=== PATIENT | female | born 1965 | race Caucasian/White ===

== ENCOUNTER 2025-02-07 13:35 | Outpatient (AMB) | payer BC, SELFPAY ==
--- OUTSIDE RECORDS SUMMARY | 2025-02-07 13:41 | XMS_ITS | Encounter Summary ---
Author Organization [facility] Address [address] [place] [address] Care Team Providers Care Mig Welder Name Role Phone Anny Cullen CAT AND DOG BATHER Primary Care Provider [phone] Encounter Details Date Type Department Care Team (Late st Contact Info) Description 01/29/2024 Orders Only [facility] [address] [place] [address] Anny Cullen, CAT AND DOG BATHER [id number] [place] [address] Hyperlipidemia, unspecified hyperlipidemia type (Primary Dx); Hyperglycemia Social History Tobacco Use Types Packs/Day Years Used Date Smoking Tobacco: Unknown Comments:: Comments No Sex and Gender Information Value Date Recorded Sex Assigned at Female 08/08/2023 7:30 AM EST Legal Sex Female 5:23 AM EDT Gender Identity Female 10/05/2024 2:07 PM EDT Sexual Orientation Other 10/05/2024 2: 07 PM EDT documented as of this encounter Plan of Treatment Upcoming Encounters Date Type Department Care Team (Late st Contact Info) Description 08/19/2025 7:40 AM EDT Appointment [facility] [address] [place] [address] documented as of this encounter Results * Due to [place] state law, this organization might not be sharing negative HIV tests. * Hemoglobin A1c (08/01/2024 7:42 AM EST) Hemoglobin A1c 5.5 4.0 - 5.7 % 08/01/2024 8:18 AM EST [facility] Estimated Average Glucose 111 mg/dL 08/01/2024 8:18 AM EST [facility] Blood Structure of peripheral vein / Unknown Venipuncture / Unknown 08/01/2024 7:42 AM EST 08/01/2024 7:51 AM EST Anny Cullen CAT AND DOG BATHER LAB BLOOD ORDERABLES Final Resu lt [facility] [address] [facility] [address] [place] [address], [place] [phone] * (ABNORMAL) Comprehensive Metabolic Panel (08/01/2024 7:42 AM EST) NA 144 136 - 145 mmol/L 08/01/2024 8:19 AM EST [facility] K 4.6 3.5 - 5.1 mmol/L 08/01/2024 8:19 AM EST [facility] Cl 105 98 - 109 mmol/L 08/01/2024 8:19 AM EST [facility] CO2 27 22 - 32 mmol/L 08/01/2024 8:19 AM EST [facility] Anion Gap 17 >=0 08/01/2024 8:19 AM EST [facility] Glucose 101(H) 60 - 99 mg/dL 08/01/2024 8:19 AM EST [facility] Creatinine 0.87 0.50 - 1.12 mg/dL 08/01/2024 8:19 AM EST [facility] Calcium 9.6 8.4 - 10.4 mg/dL 08/01/2024 8:19 AM EST [facility] Total Protein 7.3 6.6 - 8.7 g/dL 08/01/2024 8:19 AM EST [facility] Albumin 4.4 3.5 - 5.0 g/dL 08/01/2024 8:19 AM EST [facility] Bilirubin, Total 0.4 0.2 - 1.2 mg/dL 08/01/2024 8:19 AM EST [facility] Alkaline Phosphatase 60 40 - 129 U/L 08/01/2024 8:19 AM EST [facility] AST 25 0 - 33 U/L 08/01/2024 8:19 AM EST [facility] ALT 19 <=33 U/L 08/01/2024 8:19 AM EST [facility] BUN 13 8 - 23 mg/dL 08/01/2024 8:19 AM EST [facility] eGFR 76 >=60 mL/min/1. 73m2 08/01/2024 8:19 AM EST [facility] Comment:The estimated glomer ular filtration rate (eGFR) is calculated using a new formula developed by the NKF-ASN task force to eliminate race-based correction factors. The new formula uses serum/plasma creatinine, age, and gender to determine eGFR. A value below 60mls/min might indicate kidney disease and will be flagged. For additional information, see Wiggins et al, Am J Kidney Dis. 2021;79(2):268- 288, A Unifying Approach for GFR estimation: Recommendations of the NKF-ASN Task Force on Reassessing the Inclusion of Race in Diagnosing Kidney Disease . Globulin, Total 2.9 2.1 - 4.2 g/dL 08/01/2024 8:19 AM EST [facility] A/G Ratio 1.5 1.5 - 3.0 08/01/2024 8:19 AM EST [facility] Blood Structure of peripheral vein / Unknown Venipuncture / Unknown 08/01/2024 7:42 AM EST 08/01/2024 7:51 AM EST us Anny Cullen NP LAB BLOOD ORDERABLES Final Resu lt [facility] [address] [facility] [address] [place] [address], * Lipid panel (08/01/2024 7:42 AM EST) Cholesterol 216 mg/dL 08/01/2024 8:19 AM EST [facility] Comment: DESIRABLE: <200 mg/dL BORDERLINE HIGH: 200-239 mg/dL HIGH: >239 mg/dL Triglycerides 172 mg/dL 08/01/2024 8:19 AM EST [facility] Comment: NORMAL: <150 mg/dL BORDERLINE HIGH: 150-199 mg/dL HIGH: 200-499 mg/dL VERY HIGH >499 mg/dL Cholesterol, HDL 78 mg/dL 08/01/19 8:19 AM EST [facility] Comment: DESIRABLE: >60 mg/dL BORDERLINE: 40-59 mg/dL UNDESIRABLE: <40 mg/dL LDL Cholesterol 104 mg/dL 8:19 AM EST [facility] Comment: OPTIMAL: <100 mg/dL NEAR OPTIMAL: <130 mg/dL BORDERLINE HIGH: 130-159 mg/dL HIGH: 160-189 mg/dL VERY HIGH: >189 mg/dL VLDL 34.4 mg/dL 08/01/2024 8:19 AM EST [facility] Cholesterol/HDL Ratio 2.8 08/01/2024 8:19 AM EST [facility] Blood Structure of peripheral vein / Unknown Venipuncture / Unknown 08/01/2024 7:42 AM EST 08/01/2024 7:51 AM EST Anny Cullen CAT AND DOG BATHER LAB BLOOD ORDERABLES Final Resu lt [facility] [address] [place] [id number], documented in this encounter Visit Diagnoses Diagnosis Hyperlipidemia, unspecified hyperlipidemia type- Primary Hyperglycemia Other abnormal glucose documented in this encounter Additional Health Concerns Infection Onset Date Last Indicated Resolved Time R/O Respiratory Virus Infection 01/16/2025 01/16/2025 1:07 PM EDT R/O Influenza 01/16/2025 01/16/2025 01/16/2025 1:0 7 PM EDT COVID-19 - Suspected infection 01/16/2025 01/16/2025 01/16/2025 1:07 PM EDT documented as of this encounter Care Teams Mig Welder Relationship Specialty Start Date End Date Anny Cullen, CAT AND DOG BATHER [address] [place], [place] [address] [place] [address] PCP - General Family Medicine 08/01/24 documented as of this encounter
--- OUTSIDE RECORDS SUMMARY | 2025-02-07 13:41 | XMS_ITS | Encounter Summary ---
Author Organization [facility] Address [address] [place] [address] Care Team Providers Care Supervisor Car Installations Name Role Phone Anny Cullen ARCHITECTURAL INSPECTOR Primary Care Provider Encounter Details Date Type Department Care Team (Late st Contact Info) Description 12/08/2024 Results Follow-Up [address] Physiatry Department [address] [place] [address] [address] [place] [address] Farhan Estrada MD [address] [place] [id number] Social History Tobacco Use Types Packs/Day Years Used Date Smoking Tobacco: Never Smokeless Tobacco: Never Comments:: Alcohol Use Standard Drinks/Week Comments Yes 0 (1 standard drink = 0.6 oz pur e alcohol) Once a week Comments No Sex and Gender Information Value Date Recorded Sex Assigned at Female 08/08/2023 7:30 AM EST Legal Sex Female 5:23 AM EDT Gender Identity Female 10/05/2024 2:07 PM EDT Sexual Orientation Other 10/05/2024 2: 07 PM EDT documented as of this encounter Plan of Treatment Upcoming Encounters Date Type Department Care Team (Late st Contact Info) Description 08/19/2025 7:40 AM EDT Appointment [address] [address] documented as of this encounter Visit Diagnoses Not on filedocumented in this encounter Additional Health Concerns Infection Onset Date Last Indicated Resolved Time R/O Respiratory Virus Infection 01/16/2025 01/16/2025 1:07 PM EDT R/O Influenza 01/16/2025 01/16/2025 01/16/2025 1:0 7 PM EDT COVID-19 - Suspected infection 01/16/2025 01/16/2025 01/16/2025 1:07 PM EDT documented as of this encounter Care Teams Supervisor Car Installations Relationship Specialty Start Date End Date Anny Cullen NP [address] [place] [id number] PCP - General Family Medicine 08/01/24 documented as of this encounter
--- OUTSIDE RECORDS SUMMARY | 2025-02-07 13:41 | XMS_ITS | Encounter Summary ---
Author Organization [facility] Address [address] [facility] [place] [address] Care Team Providers Care Import Export Agent Name Role Phone Unavailable Primary Care Provider Unavailabl e Encounter Details Date Type Department Care Team (Late st Contact Info) Description 01/16/2025 Telephone [facility] [place] [address] Judy Metzger LPN [address] [place] [address] Social History Tobacco Use Types Packs/Day Years Used Date Smoking Tobacco: Never Assessed Comments Unknown Sex and Gender Information Value Date Recorded Sex Assigned at Not on file Legal Sex Female 11:03 AM EST Gender Identity Not on file Sexual Orientation Not on file documented as of this encounter Functional Status * Is the person deaf or does he/she have serious difficulty hearing? Answer Date of Assessment Author * Is this person blind or does he/she have serious difficulty seeing even when wearing glasses? Answer Date of Assessment Author * Does this person have serious difficulty walking or climbing stairs? Answer Date of Assessment Author * Does this person have difficulty dressing or bathing? Answer Date of Assessment Author * Because of a physical, mental, or emotional condition, does this person have difficulty doing errands alone such as visiting a doctor's office or shopping? Answer Date of Assessment Author documented as of this encounter Mental Status * Because of a physical, mental, or emotional condition, does this person have serious difficulty concentrating, remembering, or making decisions? Answer Entry Date Author documented in this encounter Plan of Treatment Not on file documented as of this encounter Visit Diagnoses Not on filedocumented in this encounter
--- OUTSIDE RECORDS SUMMARY | 2025-02-07 13:41 | XMS_ITS | Clinical Summary ---
Author Organization [facility] Address [address] [place] [address] Care Team Providers Care Manager Of Investigations Name Role Phone Anny Cullen APPLICATION DBA Primary Care Provider Allergies Active Allergy Reactions Criticality Noted Date Comments Azithromycin Cough 09/02/2024 Hydrochlorothiazide Abdominal Pain 09/02/2024 hydrochlorothiazide Lisinopril Cough 09/02/2024 Medications ALPRAZolam (XANAX) 0.25 mg tablet Take 0.25 mg by mouth 2 times a day as needed for anxiety. Active atorvastatin (LIPITOR) 10 mg tablet Take 10 mg by mouth once a day. Active buPROPion XL (WELLBUTRIN XL) 150 mg tablet Take 1 tablet by mouth once a day. 10/16/2023 Active metoprolol succinate XL (TOPROL-XL) 200 mg 24 hr tablet Take 200 mg by mouth once a day. Active sertraline (ZOLOFT) 100 mg tablet Take 1.5 tablets by mouth once a day. 12/25/2023 Active naproxen (NAPROSYN) 500 mg tablet TAKE 1 TABLET BY MOUTH TWICE A DAY 60 tablet 09/30/2024 Active tiZANidine (ZANAFLEX) 4 mg tablet Take 1 tablet (4 mg total) by mouth 3 times a day as needed for muscle spasms. 60 tablet 2 11/05/2024 Active gabapentin (NEURONTIN) 300 mg capsule Take 2 capsules (600 mg total) by mouth 3 times a day. 180 capsule 2 01/07/2025 Active amitriptyline (ELAVIL) 25 mg tablet Take 1 tablet (25 mg total) by mouth nightly. 30 tablet 1 01/23/2025 03/24/20 25 Active Active Problems Problem Noted Date Diagnosed Date Lower back pain 04/12/2012 Hypertension 04/12/2012 Encounters Date Type Department Care Team Description 01/23/2025 10:15 AM EDT Office Visit [facility] [address] [place] [address] Ashanti Peterson MD Neck pain (Primary Dx) 01/07/2025 8:30 AM EDT Follow-Up [address] [address] Farhan Estrada MD Neck pain (Primary Dx); Cervical radiculopathy; Facet arthropathy, cervical 12/20/2024 myChart Message [address] [address] Farhan Estrada MD My procedure yesterday 12/19/2024 9:00 AM EDT Procedure visit [facility] Pain Management Department [address] [place] [phone] Cervical radiculopathy (Primary Dx) 12/19/2024 7:20 AM EDT Ancillary Procedure [facility] Pain Management Department [address] [place] [phone] Neck pain 12/18/2024 8:30 AM EDT Follow-Up [address] [address] Farhan Estrada MD Neck pain (Primary Dx); Cervical radiculopathy 12/18/[address] [address] Aga Licona LPN pre-procedure guidelines. 12/09/[address] [place] [address] Farhan Estrada MD 12/08/2024 Results Follow-Up [facility] 100 [facility] Physiatry Department 100 [facility] 4th [facility] [place] [address] Farhan Estrada MD 12/06/2024 6:32 AM EDT - 12/06/2024 11:59 PM EDT Hospital Encounter [place] [facility] 100 [facility] [place] [address] Cervicalgia Discharge Disposition: Home or Self Care () 12/06/2024 Orders Only [facility] 100 [facility] [place] [address] Farhan Estrada MD Cervicalgia from Last 3 Months Social History Tobacco Use Types Packs/Day Years Used Date Smoking Tobacco: Never Smokeless Tobacco: Never Tobacco Cessation:Counseling Given: Not Answered Comments:: Alcohol Use Standard Drinks/Week Comments Yes 0 (1 standard drink = 0.6 oz pur e alcohol) Once a week Comments No Sex and Gender Information Value Date Recorded Sex Assigned at Female 08/08/2023 7:30 AM EST Legal Sex Female 5:23 AM EDT Gender Identity Female 10/05/2024 2:07 PM EDT Sexual Orientation Other 10/05/2024 2: 07 PM EDT Last Filed Vital Signs Vital Sign Reading Time Taken Comments Blood Pressure 126/70 01/07/2025 8:30 AM EDT Pulse 75 01/07/2025 8:30 AM EDT Temperature 35.8 C (96.4 F) 01/07/2025 8:30 AM EDT Respiratory Rate 16 01/07/2025 8:30 AM EDT Oxygen Saturation 97% 01/07/2025 8:30 AM EDT Inhaled Oxygen Concentration - - Weight 67.1 kg (148 lb) 01/07/2025 8:30 AM EDT Height 152.4 cm (5') 01/07/2025 8:30 AM EDT Body Mass Index 28.9 01/07/2025 8:30 AM EDT Plan of Treatment Upcoming Encounters Date Type Department Care Team (Late st Contact Info) Description 08/19/2025 7:40 AM EDT Appointment [facility] [address] [place] [address] Health Maintenance Due Date Last Done Comments Cervical Cancer Screening 1965 Cologuard 1965 FOBT / Fit Test 1965 HIV Screening 1965 HPV and Pap Smear 1965 Hepatitis C Screening 1965 Pap Smear 1965 Sigmoidoscopy 1965 Pneumococcal Vaccine: 50+ Years (1 of 1 - PCV) 11/06/2013 DTaP,Tdap,and Td Vaccines (2 - Td or Tdap) 10/04/2022 10/04/2012 COVID-19 Vaccine ( - season) 2024 05/26/2022, 05/31/2021, 09/09/2020, Additional history exists Alcohol/Substance Use Screening 06/12/2024 Depression Screening and Follow-Up 06/12/2024 Social Drivers of Health Annual Screening 06/12/2024 Influenza Vaccine (#1) 2025 , 03/16/2021, 02/22/2020, Additional history exists Basic Metabolic Panel 08/01/2025 08/01/2024 , 01/17/2024, 10/12/2022, Additional history exists Mammogram 08/13/2026 08/13/2024, 03/0 06/2023, 08/08/2023, Additional history exists Diabetes Screening 08/01/2027 08/01/2024, 0 08/01/2024, 01/17/2024, Additional history exists Colon Cancer Screening 10/07/2034 Colonoscopy 10/07/2034 10/07/2024, 04/2 01/2025, 12/16/2014 RSV Vaccine (60+ years old and patients) (1 - 1-dose 75+ series) 11/06/2038 Zoster Vaccines Completed 03/21/2022, 01/13/2022 Hepatitis B Vaccines Aged Out No long er eligible based on patient's age to complete this topic Procedures * Due to [place] state law, this organization might not be sharing negative HIV tests. Procedure Name Priority Date/Time Associated Diagnosis Comments MVL QS - COVID-19, FLU A/B & RSV RNA PCR, SYMPTOMATIC Routine 01/16/2025 12:21 PM EDT Cough, unspecified type FL GUIDED INJECTION HH SB PAIN Routine 12/19/2024 9:30 AM EDT Neck pain [place] NJX DX/THER SBST INTRLMNR CRV/THRC W/IMG GDN Routine 12/19/2024 9:00 AM EDT Cervical radiculopathy MRI CERVICAL SPINE WO CONTRAST Routine 12/06/2024 7:30 AM EDT Cervicalgia COLONOSCOPY 10/07/2024 JOSE RAMON BILATERAL SCREENING DIGITAL MAMMOGRAM WITH DOUG Routine 08/13/2024 7:31 AM EST Screening mammogram for breast cancer HEMOGLOBIN A1C Routine 08/01/2024 7:42 AM EST Hyperlipidemia, unspecified hyperlipidemia type Hyperglycemia COMPREHENSIVE METABOLIC PANEL Routine 08/01/2024 7:42 AM EST Hyperlipidemia, unspecified hyperlipidemia type Hyperglycemia from Last 3 Months or Most Recently Relevant to Health Maintenance Results * Due to [place] state law, this organization might not be sharing negative HIV tests. * COVID-19, Flu A/B & RSV RNA PCR, Symptomatic (01/16/2025 12:21 PM EDT) PCR, SARS CoV-2 RNA Not Detected Not Detected CEPHEID GENEXPERT 01/16/2025 1:07 PM EDT [facility] Flu A RNA PCR Not Detected Not Detected CEPHEID GENEXPERT 01/16/2025 1:07 PM EDT [facility] Flu B RNA PCR Not Detected Not Detected CEPHEID GENEXPERT 01/16/2025 1:07 PM EDT [facility] RSV RNA PCR Not Detected Not Detected CEPHEID GENEXPERT 01/16/2025 1:07 PM EDT [facility] Comment: Limitations: This RSV test is suitable for the pediatric population (less than 19 years of age) only. Performance characteristics have not been established for use with patients older than 19 years of age and immunocompromised patients. Test results must be evaluated in conjuction with other clinical data available to the physician. Swab (Nares) Non-Blood Collection / Unknown 01/16/2025 12:21 PM EDT 01/16/2025 12:22 PM EDT Narrative [facility] - 01/16/2025 1:07 PM EDT Methodology: The [employer] GeneXpert CoV-2/Flu/RSV plus assay is For Use Under an Emergency Use Authorization (EUA) Only with [employer]. The CoV-2/Flu/RSV plus assay is a rapid, multiplexed real-time RT-PCR assay intended for the simultaneous qualitative detection and differentiation of RNA from SARS-CoV-2, influenza A, influenza B, and Respiratory Syncytial Virus (RSV) in specimens collected from individuals suspected of a respiratory viral infection, by their healthcare provider. A positive test result for SARS-CoV-2, influenza or RSV indicates that RNA from that virus was detected. A negative test result indicates that RNA virus was not present in the specimen above the limit of detection. Therefore, a negative result does not rule out SARS-CoV-2, influenza or RSV infection and should not be used as the sole basis for treatment or other patient management decisions. Anny Cullen APPLICATION DBA LAB BODY FLUIDS AND STOOLS MIKE SKAGGS Final Result Performing Organization Address City/[facility]/ZIP Co de Phone Number [facility] [address] [place] [address] [address] [place] [address], [place] [phone] * [place] Guided Injection [facility] (12/19/2024 9:30 AM EDT) Narrative IMAGING - 12/19/2024 4:18 PM EDT Please see Final Results in Notes section in Chart Review. Farhan Estrada MD IMG FLUOROSCOPY PROC EDURES Final Result IMAGING * [place] NJX DX/THER SBST INTRLMNR CRV/THRC W/IMG GDN (12/19/2024 9:00 AM EDT) Farhan Powell MD - 12/19/2024 9:00 AM EDT Farhan Estrada MD 12/19/2024 11:45 AM Cervical Interlaminar Epidural steroid injection, Left paracentral C7-T1 Epidural Spine Inj Indication(s): Cervical Radicular pain Date/Time: 12/19/2024 9:00 AM Performed by: Farhan Estrada MD Authorized by: Farhan Estrada MD Consent: Patient identity confirmed: Name and with patient Verbal consent obtained: Yes Written consent obtained: Yes Risk and benefits discussed: Yes Written informed consent was obtained from the patient. Patient states understanding of procedure being performed: Yes Patient's understanding of procedure matches consent: Yes [place] Protocol: Procedure consent matches procedure scheduled: Yes All relevant documents/tests are correctly identified, labeled, and matched to patient: Yes Relevant tests/ Imaging studies available/reviewed: Yes Correct site marked: Yes Required blood products, implants, devices and special equipment available: Yes Immediately prior to the procedure a time out was called: Yes An attending physician was present for the procedure OR the procedure was performed by an Advanced Practice Provider: Yes The patient was admitted as an outpatient to the ambulatory injection suite at [facility]. Vital signs were monitored before and after the procedure. Patient laid on the fluoroscopy table in the prone position. An attending physician was present for the procedure OR the procedure was performed by an Advanced Practice Provider: Yes Procedure Details: Guidance: fluoroscopy Injection Medications: 2 mL lidocaine PF 1% (10 mg/mL); 10 mg dexAMETHasone (PF) 10 mg/mL; 3 mL iohexoL 240 mg iodine/mL; 1 mL 0.9% NaCl 0.9% Procedures: Left paracentral C7-T1 interlaminar epidural injection fluoroscopic guidance for needle positioning Indication: cervical radiculopathy. [place] Protocol was done prior to the start of the procedure. Patient has been educated prior to the performance of this procedure. Axial imaging was viewed prior to the procedure to note the caliber of the central spinal canal. Anesthesia: 1% lidocaine Complications: There were no complications. Options, Risks, Benefits: Interventional and non-interventional treatment options were discussed with the patient and the patient acknowledged agreement with the plan. Risks and benefits of the procedure as outlined on the consent form were discussed with the patient. These risks include but are not limited to vasovagal response (passing out), injection site soreness, new pain, worsening of pain, infection, bleeding, permanent skin changes, allergic or unexpected drug reaction with minor or major consequences, nerve injury, paralysis, dural puncture, and headache. In the case of , there are potential serious risks to an unborn fetus from x-ray/fluoroscopy. Technique: The patient was positioned prone. The skin was prepped in the usual sterile manner. The fluoroscope was positioned to expose the interlaminar space. The C7-T1 interlaminar epidural injection was begun by anesthetizing the skin and soft tissues with 1% lidocaine administered through 25 gauge 1.5 inch needle. Using fluoroscopic guidance, a sterile 18 gauge 3.5 inch Touhy needle was then positioned at the interlaminar space using loss of resistance syringe with saline technique. Precise needle placement was confirmed by fluoroscopy using AP and contralateral oblique views. 2 mL of Omnipaque 240 contrast medium was injected through microbore tubing under live fluoroscopy. There was no intravascular uptake observed. There was a superior epidural flow pattern observed. There was no evidence of intrathecal flow. The following solution was then injected through microbore tubin mL of Omnipaque 240 contrast medium 1 mL of dexamethasone solution (10mg/mL) Vitals were stable after the procedure. The patient was escorted to the recovery area and was monitored for adverse allergic, paralytic and hypertensive reactions by procedure suite staff. The patient was released in stable condition. The patient knows how to contact the office if there are any problems or questions. The patient tolerated the procedure well with no immediate complications. Dressing: Band-Aid Post-procedure Details: The patient was observed in the ambulatory surgery department. Instructions: post-procedure instructions were reviewed The patient discharged from clinic in stable condition. us Farhan Estrada MD IN CLINIC/BEDSIDE OR DERABLES Final Result * MRI Cervical Spine WO Contrast (12/06/2024 7:30 AM EDT) Anatomical Region Laterality Modality Spine, C-spine Magnetic Resonan ce 12/06/2024 3:27 PM EDT Impressions 12/06/2024 3:40 PM EDT Multilevel, multifactorial degenerative changes, prominent at C3-C4 with mild spinal canal stenosis, moderate to severe left and mild right neural foraminal stenosis and at C6-C7 with mild spinal canal stenosis, severe bilateral neural foraminal stenosis. No cord signal abnormality. If this radiology report contains a blank impression section, it is an incomplete radiology report. Please contact the interpreting radiologist or applicable radiology division as soon as possible to obtain the completed interpretation. Workstation ID: [id number] Narrative 12/06/2024 3:40 PM EDT EXAMINATION: MRI of cervical spine without contrast TECHNIQUE: Multiplanar and multisequence MR imaging of cervical spine spine performed without intravenous contrast administration. Sequences obtained include, Sagittal plane: T1, T2 and STIR Axial plane: T2 and gradient CLINICAL INFORMATION: Neck pain COMPARISON: CT 12/02/2009 FINDINGS: Straightening of cervical spine curvature. Alignment is maintained. Vertebral body heights are maintained. No focal aggressive abnormal marrow signal are patent. Spinal cord is normal in caliber and signal intensity. Craniocervical junction is maintained. Prevertebral and paraspinal soft tissues are within normal limits. There is intervertebral disc space at multiple level prominent at C5-C6 and C6- 7. C2-C3: No significant spinal canal or neural foraminal stenosis. C3-C4: Posterior disc osteophyte complex with central disc protrusion and annular fissure tear, uncovertebral and facet arthropathy resulting in mild spinal canal stenosis, moderate to severe left and mild right neural foraminal stenosis. C4-C5: Posterior disc osteophyte complex, uncovertebral and facet arthropathy resulting in moderate to severe bilateral neural foraminal stenosis, no significant spinal canal stenosis. C5-C6: Posterior disc osteophyte complex, uncovertebral and facet arthropathy resulting in moderate to severe right and moderate left neural foraminal stenosis, no significant spinal canal stenosis. C6-C7: The posterior disc osteophyte complex with superimposed right paracentral disc protrusion, uncovertebral and facet arthropathy resulting in mild spinal canal stenosis and severe bilateral neural foraminal stenosis. C7-T1: Shallow posterior disc bulge, no significant spinal canal or neural foraminal stenosis. Resulting Agency Comment [id number] Procedure Note Betzy Graham MD - 12/06/2024 EXAMINATION: MRI of cervical spine without contrast TECHNIQUE: Multiplanar and multisequence MR imaging of cervical spine spine performedwithout intravenous contrast administration. Sequences obtained include, Sagittal plane: T1, T2 and STIR Axial plane: T2 and gradient CLINICAL INFORMATION: Neck pain COMPARISON: CT 12/02/2009 FINDINGS: Straightening of cervical spine curvature. Alignment is maintained. Vertebral body heights are maintained. No focal aggressive abnormalmarrow signal are patent. Spinal cord is normal in caliber and signal intensity. Craniocervical junction is maintained. Prevertebral and paraspinal softtissues are within normal limits. There is intervertebral disc space at multiple level prominent at C5-C6and C6-7. C2-C3: No significant spinal canal or neural foraminal stenosis. C3-C4: Posterior disc osteophyte complex with central disc protrusion andannular fissure tear, uncovertebral and facet arthropathy resulting inmild spinal canal stenosis, moderate to severe left and mild right neuralforaminal stenosis. C4-C5: Posterior disc osteophyte complex, uncovertebral and facetarthropathy resulting in moderate to severe bilateral neural foraminalstenosis, no significant spinal canal stenosis. C5-C6: Posterior disc osteophyte complex, uncovertebral and facetarthropathy resulting in moderate to severe right and moderate left neuralforaminal stenosis, no significant spinal canal stenosis. C6-C7: The posterior disc osteophyte complex with superimposed rightparacentral disc protrusion, uncovertebral and facet arthropathy resultingin mild spinal canal stenosis and severe bilateral neural foraminalstenosis. C7-T1: Shallow posterior disc bulge, no significant spinal canal or neuralforaminal stenosis. IMPRESSION: Multilevel, multifactorial degenerative changes, prominent at C3-C4 withmild spinal canal stenosis, moderate to severe left and mild right neuralforaminal stenosis and at C6-C7 with mild spinal canal stenosis, severebilateral neural foraminal stenosis. No cord signal abnormality. If this radiology report contains a blank impression section, it is anincomplete radiology report. Please contact the interpreting radiologistor applicable radiology division as soon as possible to obtain thecompleted interpretation. Workstation ID: [id number] us Farhan Estrada MD IMG MRI PROCEDURES F inal Result * COLONOSCOPY (10/07/2024) Narrative Procedure Note Spencer Schreiber MD - 10/07/2024 7:03 AM EDT [facility] Patient Name: Alexia Dwyer Procedure Date: 10/07/2024 7:03 AM Date of : 1965 Admit Type: Outpatient Age: 58 Room: GI PROCEDURE Gender: Female Note Status: Finalized Attending MD: Spencer Schreiber MD Procedure: Colonoscopy Indications: Screening for colorectal malignant neoplasm Comorbidities Providers: Spencer Schreiber MD Referring MD: Anny Cullen NP Requesting Provider: Medicines: See the Anesthesia note for documentation of the administered medications Complications: No immediate complications. Estimated Blood Loss: Estimated blood loss: none. Procedure: After I obtained informed consent, the scope was passed under direct vision. Throughout theprocedure, the patient's blood pressure, pulse, and oxygen saturations were monitored continuously. The Colonoscope was introduced through the anus and advanced to the cecum, identified by appendiceal orifice and ileocecal valve. The colonoscopy was performed without difficulty. The patient tolerated the procedure well. The quality of the bowel preparation was good. informed consent included but was not limited to fever, infections, bleeding, perforation, missed pathology, damage to a majororgan and lack of guarantee of benefit Findings: The perianal and digital rectal examinations were normal. A 3 mm polyp was found in the cecum. The polyp was sessile. The polyp was removed with a cold biopsy forceps. Resection and retrieval were complete. A few small-mouthed diverticula were found in the sigmoid colon. No additional abnormalities were found on retroflexion. Impression: - One 3 mm polyp in the cecum, removed with a cold biopsy forceps. Resected and retrieved. - Diverticulosis in the sigmoid colon. Recommendation: - Await pathology results. - Repeat colonoscopy date to be determined after pending pathology results are reviewed for surveillance based on pathology results. Spencer Schreiber MD 10/07/2024 9:23:24 AM This report has been signed electronically. Number of Addenda: 0 Note Initiated On: 10/07/2024 7:03 AM us Spencer Schreiebr MD PROVATION PROCEDURES Final Re sult * JOSE RAMON Bilateral Screening Digital Mammogram With Doug (08/13/2024 7:31 AM EST) Anatomical Region Laterality Modality Breast Bilateral Mammography Narrative 08/23/2024 7:32 PM EDT Alexia Dwyer Exam Date: 08/13/[address] [id number] EXAMINATION JOSE RAMON Bilateral Screening Digital Mammogram With Doug. INDICATION Alexia Dwyer is a 58 y.o. female and is seen for: JOSE RAMON Bilateral Screening Digital Mammogram With Doug. CC and MLO views were obtained. FDA approved [employer] AI (artificial intelligence) software and R2 CAD were used as a concurrent reading aid in the interpretation of this study. COMPARISON Compared to: 08/08/2023 JOSE RAMON Bilateral Screening Digital Mammogram With Doug and 08/02/2022 JOSE RAMON Screening Digital Mammogram Bilateral Breast Findings: There are scattered areas of fibroglandular density. No significant masses, calcifications or other abnormalities are seen. IMPRESSION BI-RADS ATLAS category (overall): 1 - Negative MANAGEMENT Routine Screening Mammogram in 1 Year is recommended for bilateral. The patient was entered into a reminder system with a target date for their next mammogram. If this radiology report contains a blank impression section, it is an incomplete radiology report. Please contact the interpreting radiologist or applicable radiology division as soon as possible to obtain the completed interpretation. Juan Snider MD Resulting Agency Comment [id number] us Anny Cullen APPLICATION DBA IMG BI PROCEDURES Final Result * Hemoglobin A1c (08/01/2024 7:42 AM EST) Pathologist [facility] Hemoglobin A1c 5.5 4.0 - 5.7 % 08/01/2024 8:18 AM EST [facility] Estimated Average Glucose 111 mg/dL 08/01/2024 8:18 AM EST [facility] Blood Structure of peripheral vein / Unknown Venipuncture / Unknown 08/01/2024 7:42 AM EST 08/01/2024 7:51 AM EST us Anny Cullen NP LAB BLOOD ORDERABLES Final Resu lt [facility] [address] [facility] [address] [place] [address], [place] [phone] * (ABNORMAL) Comprehensive Metabolic Panel (08/01/2024 7:42 AM EST) Pathologist [facility] NA 144 136 - 145 mmol/L 08/01/2024 8:19 AM EST [facility] K 4.6 3.5 - 5.1 mmol/L 08/01/2024 8:19 AM EST [facility] Cl 105 98 - 109 mmol/L 08/01/2024 8:19 AM EST [facility] CO2 27 22 - 32 mmol/L 08/01/2024 8:19 AM EST [facility] Anion Gap 17 >=0 08/01/2024 8:19 AM EST [facility] Glucose 101(H) 60 - 99 mg/dL 08/01/2024 8:19 AM [facility] Creatinine 0.87 0.50 - 1.12 mg/dL 08/01/2024 8:19 AM [facility] Calcium 9.6 8.4 - 10.4 mg/dL 08/01/2024 8:19 AM [facility] Total Protein 7.3 6.6 - 8.7 g/dL 08/01/2024 8:19 AM [facility] Albumin 4.4 3.5 - 5.0 g/dL 08/01/2024 8:19 AM [facility] Bilirubin, Total 0.4 0.2 - 1.2 mg/dL 08/01/2024 8:19 AM [facility] Alkaline Phosphatase 60 40 - 129 U/L 08/01/2024 8:19 AM [facility] AST 25 0 - 33 U/L 08/01/2024 8:19 AM [facility] ALT 19 <=33 U/L 08/01/2024 8:19 AM [facility] BUN 13 8 - 23 mg/dL 08/01/2024 8:19 AM [facility] eGFR 76 >=60 mL/min/1. 73m2 08/01/2024 8:19 AM [facility] Comment:The estimated glomer ular filtration [...] 2.1 - 4.2 g/dL 08/01/2024 8:19 AM [facility] A/G Ratio 1.5 1.5 - 3.0 08/01/2024 8:19 AM EST [facility] Blood Structure of peripheral vein / Unknown Venipuncture / Unknown 08/01/2024 7:42 AM EST 08/01/2024 7:51 AM EST us Anny Cullen NP LAB BLOOD ORDERABLES Final Resu lt [facility] [address] [facility] [address] [place] [address], from Last 3 Months or Most Recently Relevant to Health Maintenance Insurance [facility] FEDERAL Advance Directives * Full Code (Latest Code Status on File) Date Activated Date Inactivated Comments 10/07/2024 8:10 AM 10/07/2024 12:03 PM Care Teams Manager Of Investigations Relationship Specialty Start Date End Date Anny Cullen NP [address] [facility] [address] [place] [address] PCP - General Family Medicine 08/01/24
--- OUTSIDE RECORDS SUMMARY | 2025-02-07 13:41 | XMS_ITS | Clinical Summary ---
Author Organization [facility] [employer] [facility] Address [address] [facility] [place] [address] Care Team Providers Care Personal Driver Name Role Phone Unavailable Primary Care Provider Unavailabl e Encounters Date Type Department Care Team Description 01/16/2025 Telephone [facility] RI[facility] [address] [place] [address] Judy Metzger LPN from Last 3 Months Social History Tobacco Use Types Packs/Day Years Used Date Smoking Tobacco: Never Assessed Comments Unknown Sex and Gender Information Value Date Recorded Sex Assigned at Not on file Legal Sex Female 11:03 AM EST Gender Identity Not on file Sexual Orientation Not on file Plan of Treatment Health Maintenance Due Date Last Done Comments Colorectal Cancer: COLONOSCO PY Screening every 10 yrs (or Modifier) 1965 Depression: Screening Annual ly using PHQ-2/9 in Adults 18 yrs or above (or HM Modifier)([facility]) 11/06/1981 Hepatitis C Virus Infection in Adolescents and Adults: Screening (or Modifier) ([facility]) 11/06/1981 SDMS Screening Reminder: Joanie grace for all adults ([facility]) 11/06/1981 Tobacco Smoking Cessation: i n Adults excluding Women: Behavioral and Pharmacotherapy Interventions ([facility]) 11/06/1981 DTaP/Tdap/Td Vaccines ([facility]) (1 - Tdap) 11/06/1982 Cervical Cancer Screenin 1-65 yrs of age (or Modifier) 11/06/1984 Cervical Cancer Screening: P ap every 3 yrs pts age 21-65 11/06/1984 Cervical Cancer: Pap Screeni ng with Modifier timing ([facility]) 11/06/1984 Cervical Cancer: hrHPV alone or with cotesting Pap for Pts 30-65yrs screening every 5yrs ([facility]) 11/06/1984 Colorectal Cancer Screening 45 -75 Yrs (or HM Modifier ) 11/06/2008 Colorectal Cancer: FLEXIBLE SIGMOIDOSCOPY Screening every 5 yrs 11/06/2008 Colorectal Cancer: Fecal Imm unochemical Test (FIT) Annually [facility] 11/06/2008 Colorectal Cancer: High-sens itivity gFOBT Screening Annually [facility] 11/06/2008 Colorectal Cancer: Stool Col oguard Screening every 3 yrs 11/06/2008 Colorectal Cancer:CT Colonography Screening every 5 yr s 11/06/2008 Breast Cancer: Screening Joanie ually age 50-74 yrs (or HM Modifier)([facility]) 11/06/2013 Pneumococcal Vaccination Scr eening: Patients 50+ yrs of age ([facility]) (1 of 1 - PCV) 11/06/2013 Zoster/Shingles Vaccine Seri es Screening: Adults aged 18+ yrs (or HM Modifiers)([facility]) (1 of 2) 11/06/2013 Flu Vaccination: Yearly for ages 18mos through 64 years (or Modifier)([facility]) 01/10/2025 RSV Vaccines (1 - 1-dose 75+ series) 11/06/2038 Medical Devices Not on file
--- OUTSIDE RECORDS SUMMARY | 2025-02-07 13:41 | XMS_ITS | Encounter Summary ---
Author Organization [facility] Address [address] [place] [address] Care Team Providers Care Barrel Plater Name Role Phone Anny Cullen JAVA TECHNICAL ARCHITECT Primary Care Provider [phone] Encounter Details Date Type Department Care Team (Late st Contact Info) Description 09/25/2023 Lab Requisition [facility] [address] [place] [address] Anny Cullen, JAVA TECHNICAL ARCHITECT [address] [address] Cough, unspecified Social History Tobacco Use Types Packs/Day Years [...] Info) Description 08/19/2025 7:40 AM EDT Appointment [facility] [address] [place] [address] documented as of this encounter Procedures * Due to [place] state law, this organization might not be sharing negative HIV tests. Procedure Name Priority Date/Time Associated Diagnosis Comments MVL QS - COVID-19, FLU A/B & RSV RNA PCR, SYMPTOMATIC Routine 09/25/2023 12:40 PM EDT Cough, unspecified documented in this encounter Results * Due to [place] state law, this organization might not be sharing negative HIV tests. * COVID-19, Flu A/B & RSV RNA PCR, Symptomatic (09/25/2023 12:40 PM EDT) [facility] PCR, SARS CoV-2 RNA Not Detected Not Detected CEPHEID GENEXPERT 09/25/2023 1:24 PM EDT [facility] Flu A RNA PCR Not Detected Not Detected CEPHEID GENEXPERT 09/25/2023 1:24 PM EDT [facility] Flu B RNA PCR Not Detected Not Detected CEPHEID GENEXPERT 09/25/2023 1:24 PM EDT [facility] RSV RNA PCR Not Detected Not Detected CEPHEID GENEXPERT 09/25/2023 1:24 PM EDT [facility] Comment: Limitations: This RSV test is suitable for the pediatric population (less than 19 years of age) only. Performance characteristics have not been established for use with patients older than 19 years of age and immunocompromised patients. Test results must be evaluated in conjuction with other clinical data available to the physician. Swab (Nares) 09/25/2023 12:4 0 PM EDT 09/25/2023 12:40 PM EDT Narrative [facility] - 09/25/2023 1:24 PM EDT Methodology: The [employer] GeneXpert CoV-2/Flu/RSV plus assay is For Use Under an Emergency Use Authorization (EUA) Only with [employer]. The CoV-2/Flu/RSV plus assay is a [...] for treatment or other patient management decisions. us Anny Cullen JAVA TECHNICAL ARCHITECT LAB BODY FLUIDS AND STOOLS MIKE SKAGGS Final Result [facility] [address] [facility] [address] [place] [address], documented in this encounter Visit Diagnoses Diagnosis Cough, unspecified documented in this encounter Additional Health Concerns Infection Onset Date Last Indicated Resolved Time R/O Respiratory Virus Infection 09/25/2023 09/25/2023 1:24 PM EDT R/O Influenza 09/25/2023 09/25/2023 09/25/2023 1:2 4 PM EDT COVID-19 - Suspected infection 09/25/2023 09/25/2023 09/25/2023 1:24 PM EDT R/O Respiratory Virus Infection 01/16/2025 01/16/2025 1:07 PM EDT R/O Influenza 01/16/2025 01/16/2025 01/16/2025 1:0 7 PM EDT COVID-19 - Suspected infection 01/16/2025 01/16/2025 01/16/2025 1:07 PM EDT documented as of this encounter Care Teams Barrel Plater Relationship Specialty Start Date End Date Anny Cullen, JAVA TECHNICAL ARCHITECT [address] [facility] [address] [place] [address] PCP - General Family Medicine 08/01/24 documented as of this encounter
[2025-02-07 14:20] VITALS: BMI 27.9
--- NOTE | 2025-02-07 14:20 | A.SPINEOV_ITS ---
Vital Signs 02/07/25 14:20 Height 5 ft Weight 143 lb BMI 27.9 Intake Visit Reasons: bulging disc and pinch nerve on cervical spine Intake Note: Mrs. Dwyer is here today c/o Neck pain radiating to the arms. Bookie Required: No Allergies erythromycin base Allergy (Severe, Verified 02/07/25 14:22) Flu Like Symptoms hydrochlorothiazide Allergy (Severe, Verified 02/07/25 14:22) Flu Like Symptoms lisinopril Allergy (Severe, Verified 02/07/25 14:22) Flu Like Symptoms Physical Exam Vital Signs: BMI result Body Mass Index 27.9 Assessment & Plan Assessment & Plan (1) Herniation of cervical intervertebral disc with radiculopathy: Code(s): M50.10 - Cervical disc disorder with radiculopathy, unspecified cervical region Category: Medical Plan: Dear colleague Thank you for referring Alexia Dwyer for a 2nd opinion to the office today with a chief complaint of left-sided neck pain. 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 She went for massage for treatment which aggravated the symptoms dramatically. The pain is located in the left side of the neck and then radiates to the shoulder upper arm and scapula. The pain is constantly present and on top of that she has intermittent exacerbations of the pain. The pain is associated with tingling in the same area. She denies weakness. The pain is 6-8 on a scale of 10. The right side is unaffected. She tried physical therapy, trigger point injections and an epidural steroid injection without success. She is currently taking amitriptyline which is not helping. On top of that she is taking [id number] anti-inflammatory drugs and Tylenol. ts PMH: Hypertension, sleep apnea, , right shoulder impingement and appendectomy Medications: Amitriptyline, antihypertensive medication, antidepressant medication Allergies: Erythromycin, lisinopril, hydrochlorothiazide Social history: . Nonsmoker. Physical Exam: Pleasant female. She is in discomfort. Spurling test produces pain radiating down the left side of her neck to the upper arm with associated paresthesia. Strength is 5/5. She is hyperreflexic. Bilateral Avendaño's reflexes. No Babinski's. Gait is undisturbed. Radiological Studies: MRI done at [facility] on on 12/06/2024 shows significant motion artifact. Sagittal image shows multilevel posterior osteophytes. More importantly, there is a disc herniation C3-C4 eccentric towards the left side and compressing the C4 nerve root. There is severe left C5 foraminal stenosis. Bilateral C7 foraminal stenosis. Dynamic cervical x- rays obtained today show no signs of instability. There is a grade 1 anterolisthesis of C3-C4. Impression/Plan: This patient is suffering from an acute cervical radiculopathy which is not responding to conservative management. The symptoms are debilitating and interfering with the daily activities and sleep. The pain radiates to the lateral side of the left upper arm and therefore I think the symptoms are explained by the disc herniation C3-C4 compressing the C4 nerve root and possibly the severe C5 foraminal stenosis. As stated before, the MRI has motion artifacts and therefore I would like to repeat the MRI to make sure that the abnormalities are as severe as they look on this MRI. She will revisit me after new MRIs done and then we will finalize the plan. Most likely we will offer a C3-4, C4-5 anterior diskectomy and fusion. Thank you for allowing me to participate in your patients care. total time spent was 50 minutes in counseling ,coordination of plan, personal review of imaging, surgical decision making and subsequent plan Ike Nicholson MD, PhD Spine Fellowship Trained Neurosurgeon Director, [facility] Orders: Orders XR cervical spine 4V Today M54.12 - Radiculopathy, cervical region MR cervical spine wo con Today M50.10 - Cervical disc disorder with radiculopathy, unspecified cervical region Coding Level of Care Code New Pt Level 4 (21626) Diagnoses Herniation of cervical intervertebral disc with radiculopathy M50.10
== END 2025-02-07 15:20 | disposition home or self-care (01) ==
LOC: HO.HNS 13:35
PROVIDERS: PCP Nurse Practitioner Family; Visit Provider Neurological Surgery
DX: M50.10 Cervical disc disorder with radiculopathy, unspecified cervical region (principal)
CPT/HCPCS: 99204

== ENCOUNTER 2025-02-07 13:35 | Outpatient (REF) | payer BC, SELFPAY ==
--- NOTE | ~2025-02-07 | XR_ITS ---
EXAMINATION: XR CERVICAL SPINE CLINICAL INFORMATION: M54.12 - Radiculopathy, cervical region TECHNIQUE: AP, and lateral: Flexion, neutral, and extension view x-rays of the cervical spine. PRIOR: None FINDINGS: There is straightening of the cervical lordosis. There is no prevertebral soft tissue swelling. C3-4 demonstrates mild disc space narrowing. C4-5 demonstrates moderate disc space narrowing and endplate and uncovertebral osteophytes. C5-6 and C6-7 demonstrates moderate to severe disc space narrowing and endplate and uncovertebral osteophytes. C7-T1 demonstrates minimal disc space narrowing. There is decreased range motion during flexion and extension without evidence of instability. There is no prevertebral soft tissue edema. XR/XR cervical spine 4V IMPRESSION: There is straightening of the expected cervical lordosis. This can be idiopathic, but can also be related to degenerative change, muscle spasm, or posterior soft tissue injury. Multilevel degenerative changes are most pronounced at C5-6 and C6-7. Electronically signed by: Roney Ferguson MD 02/07/2025 04:31 PM EDT
== END 2025-02-07 13:36 | disposition home or self-care (01) ==
LOC: HO.HOSX 13:35
PROVIDERS: PCP Nurse Practitioner Family; Visit Provider Neurological Surgery
DX: M50.10 Cervical disc disorder with radiculopathy, unspecified cervical region (principal)
CPT/HCPCS: 72050

== ENCOUNTER → 2025-02-07 14:42 | Outpatient (BNV) | payer BC, SELFPAY | PROVIDERS: PCP Nurse Practitioner Family; Visit Provider Radiology Diagnostic Radiology | DX: M50.322 Other cervical disc degeneration at C5-C6 level (principal); M50.323 Other cervical disc degeneration at C6-C7 level | CPT/HCPCS: 72050 ==

== ENCOUNTER 2025-02-27 16:15 | Outpatient (REF) | payer BC, SELFPAY ==
--- NOTE | ~2025-02-27 | MR_ITS ---
EXAM: MRI cervical spine without contrast TECHNIQUE: Multiplanar multisequence imaging through the cervical spine was performed from the base of the skull through at least T1. INDICATION: M50.10 - Cervical disc disorder with radiculopathy, PRIOR: X-ray from 02/07/2025 FINDINGS: Skull Base: There is no tonsillar ectopia. Cranialcervical junction is intact. Cord: There is no abnormal cord signal or hydrosyringomyelia. Marrow and end-plates: There are no marrow replacing lesions. Alignment: There is straightening of cervical lordosis. Soft tissues: Paraspinal soft tissues and major vascular structures are unremarkable. C2-3: There is mild broad-based disc bulge and mild uncovertebral osteophytes without spinal stenosis and with minimal foraminal narrowing. C3-4: There is broad-based disc bulge and central and left central extrusion with caudal migration of disc extends down to the C4-5 disc. There is mild spinal stenosis. Uncovertebral and facet osteophytes result in mild right foraminal narrowing. Disc and osteophytes result in severe left foraminal narrowing. C4-5: There is circumferential broad-based disc bulge and mild spinal stenosis. Uncovertebral and facet osteophytes result in moderate right and severe left foraminal narrowing. C5-6: There is mild loss disc height and circumferential broad-based disc bulge resulting in mild spinal stenosis. Disc and osteophytes result in mild bilateral foraminal narrowing, greater right. C6-7: There is mild loss disc height and circumferential broad-based disc bulge. There is mild spinal stenosis. Disc and osteophytes result in moderate right and severe left foraminal narrowing. C7-T1: Circumferential broad-based disc bulge indents the thecal sac without causing spinal stenosis. Disc and osteophyte result in severe right and mild left foraminal narrowing. MR/MR cervical spine wo con IMPRESSION: C3-4: There is disc herniation with caudal migration of disc down to C4-5 disc. There is mild spinal stenosis with mild right and severe left foraminal narrowing. C4-5: There is mild spinal stenosis and moderate right and severe left foraminal narrowing. C5-6: There is mild spinal stenosis with mild bilateral foraminal narrowing, greater on the right. C6-7: There is mild spinal stenosis with moderate right and severe left foraminal narrowing. C7-T1: There is severe right and mild left foraminal narrowing. Electronically signed by: Roney Ferguson MD 02/27/2025 05:14 PM EDT RP
--- OUTSIDE RECORDS SUMMARY | 2025-02-27 17:18 | XMS_ITS | Clinical Summary ---
Author Organization [facility] Address [address] [place] [address] Care Team Providers Care Marine Electronics Repairer Name Role Phone Anny Cullen SUPERVISOR TAN ROOM Primary Care Provider [phone] Allergies Active Allergy Reactions Criticality Noted Date [...] Encounters Date Type Department Care Team Description 02/14/2025 Refill [facility] [address] [place] [id number] Ashanti Peterson MD 01/23/2025 10:15 AM EDT Office Visit [facility] [address] [place] [id number] Ashanti Peterson MD Neck pain (Primary Dx) 01/07/2025 8:30 AM EDT Follow-Up [address] Physiatry [address] [address] Farhan Estrada MD Neck pain (Primary Dx); Cervical radiculopathy; Facet arthropathy, cervical 12/20/2024 myChart Message [address] [address] Farhan Estrada MD My procedure yesterday 12/19/2024 9:00 AM EDT Procedure visit [facility] Department [address] [place] [address] Cervical radiculopathy (Primary Dx) 12/19/2024 7:20 AM EDT Ancillary Procedure [facility] Department [address] [place] [address] Neck pain 12/18/2024 8:30 AM EDT Follow-Up [address] [address] Farhan Estrada MD Neck pain (Primary Dx); Cervical radiculopathy 12/18/[address] [address] Aga Licona LPN pre-procedure guidelines. 12/09/[address] [place] [address] Farhan Estrada MD 12/08/2024 Results Follow-Up [address] [address] Farhan Estrada MD 12/06/2024 6:32 AM EDT - 12/06/2024 11:59 PM EDT Hospital Encounter [address] [address] Cervicalgia Discharge Disposition: Home or Self Care (01) 12/06/2024 Orders Only [address] [address] Farhan Estrada MD Cervicalgia from Last 3 [...] Upcoming Encounters Date Type Department Care Team (Carmen st Contact Info) Description 08/19/2025 7:40 AM EDT Appointment [facility] [address] [place] [address] Health Maintenance Due Date Last Done Comments Cervical Cancer Screening 1965 Cologuard 1963 FOBT / Fit Test 1965 HIV Screening 1965 HPV and Pap Smear 1963 Hepatitis C Screening 1965 Pap Smear 1963 Sigmoidoscopy 1965 Pneumococcal Vaccine: 50+ Years (1 of 1 - PCV) 11/06/2013 DTaP,Tdap,and Td Vaccines (2 - Td or Tdap) 10/04/2022 10/04/2012 Alcohol/Substance Use Screening 06/12/2024 Depression Screening and Follow-Up 06/12/2024 Social Drivers of Health Annual Screening 06/12/2024 COVID-19 Vaccine ( season) 2025 05/26/2022, 05/31/2021, 09/09/2020, Additional history exists Influenza Vaccine (#1) 2025 , 03/16/2021, 02/22/2020, Additional history exists Basic Metabolic Panel 08/01/2025 08/01/2024 , 01/17/2024, 10/12/2022, Additional history exists Mammogram 08/13/2026 08/13/2024, 03/0 06/2023, 08/08/2023, Additional history exists Diabetes Screening 08/01/2027 08/01/2024, 0 08/01/2024, 01/17/2024, Additional history exists Colon Cancer Screening 10/07/2034 Colonoscopy 10/07/2034 10/07/2024, /2 01/2025, 12/16/2014 RSV Vaccine (60+ years old and patients) (1 - 1-dose 75+ series) 11/06/2038 Zoster Vaccines Completed 03/21/2022, 01/13/2022 Hepatitis B Vaccines Aged Out No long er eligible based on patient's age to complete this topic Procedures * Due to [facility] law, this organization might not be sharing negative HIV tests. Procedure Name Priority Date/Time Associated Diagnosis Comments MVL QS - COVID-19, FLU A/B & RSV RNA PCR, SYMPTOMATIC Routine 01/16/2025 12:21 PM EDT Cough, unspecified type FL GUIDED INJECTION HH SB PAIN Routine 12/19/2024 9:30 AM EDT Neck pain NC NJX DX/THER SBST INTRLMNR CRV/THRC W/IMG GDN [...] to Health Maintenance Results * Due to [facility] law, this organization might not be sharing negative HIV tests. * COVID-19, Flu A/B & RSV RNA PCR, Symptomatic (01/16/2025 12:21 PM EDT) PCR, SARS CoV-2 RNA Not Detected Not Detected CEPHEID GENEXPERT 01/16/2025 1:07 PM EDT [facility] Flu A RNA PCR Not Detected Not Detected CEPHEID GENEXPERT 01/16/2025 1:07 PM EDT [facility] Flu B RNA PCR Not Detected Not Detected CEPHEID GENEXPERT 01/16/2025 1:07 PM EDT [facility] RSV RNA PCR Not Detected Not Detected Nayatek GENEXPERT 01/16/2025 1:07 PM EDT [facility] Comment: Limitations: This RSV test [...] PM EDT 01/16/2025 12:22 PM EDT Narrative [facility] - 01/16/2025 1:07 PM EDT Methodology: The [employer] GeneXpert CoV-2/Flu/RSV plus assay is For Use Under an Emergency Use Authorization (EUA) Only with [employer]. The CoV-2/Flu/RSV plus assay is a [...] or other patient management decisions. Anny Cullen SUPERVISOR TAN ROOM LAB BODY FLUIDS AND STOOLS MIKE SKAGGS Final Result [facility] [address] [place] [address], [place] [phone] * FL Guided Injection [facility] (12/19/2024 9:30 AM EDT) Narrative IMAGING - 12/19/2024 4:18 PM EDT Please see Final Results in Notes section in Chart Review. Farhan CURRY FLUOROSCOPY PROC EDURES Final Result IMAGING * NC NJX DX/THER SBST INTRLMNR CRV/THRC W/IMG GDN [...] Patient's understanding of procedure matches consent: Yes May Protocol: Procedure consent matches procedure scheduled: Yes [...] outpatient to the ambulatory injection suite at [facility]. Vital signs were monitored before and [...] guidance for needle positioning Indication: cervical radiculopathy. May Protocol was done prior to the start [...] to obtain the completed interpretation. Workstation ID: [id number] Narrative 12/06/2024 3:40 PM EDT EXAMINATION: MRI [...] or neural foraminal stenosis. Resulting Agency Comment [id number] Procedure Note Betzy Graham MD - 12/06/2024 [...] possible to obtain thecompleted interpretation. Workstation ID: [id number] us Farhan Estrada MD IMG MRI PROCEDURES F inal Result * COLONOSCOPY (10/07/2024) Narrative Procedure Note Spencer Schreiber MD - 10/07/2024 7:03 AM EDT [facility] Patient Name: Alexia Dwyer Procedure Date: 10/07/2024 [...] 0 Note Initiated On: 10/07/2024 7:03 AM Spencer Schreiber MD PROVATION PROCEDURES Final Re sult * JOSE RAMON Bilateral Screening Digital Mammogram With Doug (08/13/2024 7:31 AM EST) Anatomical Region Laterality Modality Breast Bilateral Mammography Narrative 08/23/2024 7:32 PM EDT Alexia Dwyer Exam Date: 08/13/[address] [address] EXAMINATION JOSE RAMON Bilateral Screening Digital Mammogram With Doug. INDICATION Alexia Dwyer is a 58 y.o. female and is seen for: JOSE RAMON Bilateral Screening Digital Mammogram With Doug. CC and MLO views were obtained. FDA approved [employer] AI (artificial intelligence) software and R2 CAD [...] interpretation. Juan Snider MD Resulting Agency Comment [id number] us Anny Cullen NP IMG BI PROCEDURES Final Result * Hemoglobin A1c (08/01/2024 7:42 AM EST) Hemoglobin A1c 5.5 4.0 - 5.7 % 08/01/2024 8:18 AM EST [facility] Estimated Average Glucose 111 mg/dL 08/01/2024 8:18 AM EST [facility] Blood Structure of peripheral vein / Unknown Venipuncture / Unknown 08/01/2024 7:42 AM EST 08/01/2024 7:51 AM EST us Anny Cullen NP LAB BLOOD ORDERABLES Final Resu lt [facility] [address] [place] [address] [address] [place] [address], [place] [phone] * (ABNORMAL) Comprehensive Metabolic Panel (08/01/2024 7:42 AM EST) NA 144 136 - 145 mmol/L 08/01/2024 8:19 AM EST [facility] K 4.6 3.5 - 5.1 mmol/L 08/01/2024 8:19 AM EST [facility] Cl 105 98 - 109 mmol/L 08/01/2024 8:19 AM EST [facility] CO2 27 22 - 32 mmol/L 08/01/2024 8:19 AM [facility] Anion Gap 17 >=0 08/01/2024 8:19 AM [facility] Glucose 101(H) 60 - 99 mg/dL 08/01/2024 8:19 AM [facility] Creatinine 0.87 0.50 - 1.12 mg/dL 08/01/2024 8:19 AM [facility] Calcium 9.6 8.4 - 10.4 mg/dL 08/01/2024 8:19 AM [facility] Total Protein 7.3 6.6 - 8.7 g/dL 08/01/2024 8:19 AM [facility] Albumin 4.4 3.5 - 5.0 g/dL 08/01/2024 8:19 AM [facility] Bilirubin, Total 0.4 0.2 - 1.2 mg/dL 08/01/2024 8:19 AM [facility] Alkaline Phosphatase 60 40 - 129 U/L 08/01/2024 8:19 AM [facility] AST 25 0 - 33 U/L 08/01/2024 8:19 AM [facility] ALT 19 <=33 U/L 08/01/2024 8:19 AM [facility] BUN 13 8 - 23 mg/dL 08/01/2024 8:19 AM [facility] eGFR 76 >=60 mL/min/1. 73m2 08/01/2024 8:19 AM [facility] Comment:The estimated glomer ular filtration rate (eGFR) is calculated using a new formula developed by the NKF-ASN task force to eliminate race-based correction factors. The new formula uses serum/plasma creatinine, age, and gender to determine eGFR. A value below 60mls/min might indicate kidney disease and will be flagged. For additional information, see Rosalie serrano al, Am J Kidney Dis. 2021;79(2):268- 288, A Unifying Approach for GFR estimation: Recommendations of the NKF-ASN Task Force on Reassessing the Inclusion of Race in Diagnosing Kidney Disease . Globulin, Total 2.9 2.1 - 4.2 g/dL 08/01/2024 8:19 AM EST [facility] A/G Ratio 1.5 1.5 - 3.0 08/01/2024 8:19 AM EST [facility] Blood Structure of peripheral vein / Unknown Venipuncture / Unknown 08/01/2024 7:42 AM EST 08/01/2024 7:51 AM EST Anny Cullen NP LAB BLOOD ORDERABLES Final Resu lt [facility] [address] [place] [address], from Last 3 Months or Most Recently Relevant to Health Maintenance Insurance [facility] FEDERAL Advance Directives * Full Code (Latest Code Status on File) Date Activated Date Inactivated Comments 10/07/2024 8:10 AM 10/07/2024 12:03 PM Care Teams Marine Electronics Repairer Relationship Specialty Start Date End Date Anny Cullen, GENEVIEVE [address] [place] [address] [address] [place] [address] PCP - General Family Medicine 08/01/24
--- OUTSIDE RECORDS SUMMARY | 2025-02-27 17:18 | XMS_ITS | Encounter Summary ---
Author Organization [facility] Address [address] [facility] [place] [address] Care Team Providers Care Pe Teacher Name Role Phone Unavailable Primary Care Provider Unavailabl e Encounter Details Date Type Department Care Team (Late st Contact Info) Description 01/16/2025 Telephone [facility] [address] [place] [address] Judy Metzger LPN [address] [place] [address] Social History Tobacco Use Types Packs/Day Years [...]
--- OUTSIDE RECORDS SUMMARY | 2025-02-27 17:18 | XMS_ITS | Encounter Summary ---
Author Organization [facility] Address [address] [place] [address] Care Team Providers Care Guest Relations Officer Name Role Phone Anny Cullen ASTRONOMY DEPARTMENT CHAIR Primary Care Provider [phone] Encounter Details Date Type Department Care Team (Late st Contact Info) Description 09/25/2023 Lab Requisition [facility] [address] [place] [address] Anny Cullen, ASTRONOMY DEPARTMENT CHAIR [address] [address] Cough, unspecified Social History Tobacco Use Types [...] Info) Description 08/19/2025 7:40 AM EDT Appointment [facility] [address] [place] [address] documented as of this encounter Procedures * Due to [place] state law, this organization might not be sharing negative HIV tests. Procedure Name Priority Date/Time Associated Diagnosis Comments MVL QS - COVID-19, FLU A/B & RSV RNA PCR, SYMPTOMATIC Routine 09/25/2023 12:40 PM EDT Cough, unspecified documented in this encounter Results * Due to [place] state law, this organization might not be sharing negative HIV tests. * COVID-19, Flu A/B & RSV RNA PCR, Symptomatic (09/25/2023 12:40 PM EDT) [facility] PCR, SARS CoV-2 RNA Not Detected Not Detected [facility]EXPERT 09/25/2023 1:24 PM EDT [facility] Flu A RNA PCR Not Detected Not Detected CEPHEID GENEXPERT 09/25/2023 1:24 PM EDT [facility] Flu B RNA PCR Not Detected Not Detected CEPHEID GENEXPERT 09/25/2023 1:24 PM EDT [facility] RSV RNA PCR Not Detected Not Detected CEPHEID GENEXPERT 09/25/2023 1:24 PM EDT [facility] Comment: Limitations: This RSV test [...] PM EDT 09/25/2023 12:40 PM EDT Narrative [facility] - 09/25/2023 1:24 PM EDT Methodology: The [employer] GeneXpert CoV-2/Flu/RSV plus assay is For Use Under an Emergency Use Authorization (EUA) Only with [employer]. The CoV-2/Flu/RSV plus assay is a [...] other patient management decisions. us Anny Cullen ASTRONOMY DEPARTMENT CHAIR LAB BODY FLUIDS AND STOOLS MIKE SKAGGS Final Result [facility] [address] [facility] [address] [place] [address], documented in this encounter Visit Diagnoses Diagnosis [...] documented as of this encounter Care Teams Guest Relations Officer Relationship Specialty Start Date End Date Anny Cullen, ASTRONOMY DEPARTMENT CHAIR [address] [facility] [address] [place] [address] PCP - General Family Medicine 08/01/24 documented as of this encounter
--- OUTSIDE RECORDS SUMMARY | 2025-02-27 17:18 | XMS_ITS | Encounter Summary ---
Author Organization [facility] Address [address] [place] [address] Care Team Providers Care Sodder Name Role Phone Anny Cullen RENTAL SALES ASSOCIATE Primary Care Provider [phone] Encounter Details Date Type Department Care Team (Late st Contact Info) Description 01/29/2024 Orders Only [facility] [address] [place] [address] Anny Cullen, RENTAL SALES ASSOCIATE [address] [place] [address] Hyperlipidemia, unspecified hyperlipidemia type (Primary Dx); Hyperglycemia [...] Info) Description 08/19/2025 7:40 AM EDT Appointment [facility] [address] [place] [address] documented as of this encounter Results * Due to [place] state law, this organization might not be sharing negative HIV tests. * Hemoglobin A1c (08/01/2024 7:42 AM EST) Hemoglobin A1c 5.5 4.0 - 5.7 % 08/01/2024 8:18 AM EST [facility] Estimated Average Glucose 111 mg/dL 08/01/2024 8:18 AM EST [facility] Blood Structure of peripheral vein / Unknown Venipuncture / Unknown 08/01/2024 7:42 AM EST 08/01/2024 7:51 AM EST Anny Cullen RENTAL SALES ASSOCIATE LAB BLOOD ORDERABLES Final Resu lt [facility] [address] [facility] [address] [place] [address], [place] [phone] * (ABNORMAL) Comprehensive Metabolic Panel (08/01/2024 7:42 AM EST) NA 144 136 - 145 mmol/L 08/01/2024 8:19 AM EST [facility] K 4.6 3.5 - 5.1 mmol/L 08/01/2024 8:19 AM EST [facility] Cl 105 98 - 109 mmol/L 08/01/2024 8:19 AM EST [facility] CO2 27 22 - 32 mmol/L 08/01/2024 8:19 AM EST [facility] Anion Gap 17 >=0 08/01/2024 8:19 AM EST [facility] Glucose 101(H) 60 - 99 mg/dL 08/01/2024 8:19 AM EST [facility] Creatinine 0.87 0.50 - 1.12 mg/dL 08/01/2024 8:19 AM EST [facility] Calcium 9.6 8.4 - 10.4 mg/dL 08/01/2024 8:19 AM EST [facility] Total Protein 7.3 6.6 - 8.7 g/dL 08/01/2024 8:19 AM EST [facility] Albumin 4.4 3.5 - 5.0 g/dL 08/01/2024 8:19 AM EST [facility] Bilirubin, Total 0.4 0.2 - 1.2 mg/dL 08/01/2024 8:19 AM EST [facility] Alkaline Phosphatase 60 40 - 129 U/L 08/01/2024 8:19 AM EST [facility] AST 25 0 - 33 U/L 08/01/2024 8:19 AM EST [facility] ALT 19 <=33 U/L 08/01/2024 8:19 AM EST [facility] BUN 13 8 - 23 mg/dL 08/01/2024 8:19 AM EST [facility] eGFR 76 >=60 mL/min/1. 73m2 08/01/2024 8:19 AM EST [facility] Comment:The estimated glomer ular filtration rate [...] - 4.2 g/dL 08/01/2024 8:19 AM EST [facility] A/G Ratio 1.5 1.5 - 3.0 08/01/2024 8:19 AM EST [facility] Blood Structure of peripheral vein / Unknown Venipuncture / Unknown 08/01/2024 7:42 AM EST 08/01/2024 7:51 AM EST us Anny Cullen NP LAB BLOOD ORDERABLES Final Resu lt [facility] [address] [facility] [address] [place] [address], * Lipid panel (08/01/2024 7:42 AM EST) Cholesterol 216 mg/dL 08/01/2024 8:19 AM EST [facility] Comment: DESIRABLE: <200 mg/dL BORDERLINE HIGH: 200-239 mg/dL HIGH: >239 mg/dL Triglycerides 172 mg/dL 08/01/2024 8:19 AM EST [facility] Comment: NORMAL: <150 mg/dL BORDERLINE HIGH: 150-199 mg/dL HIGH: 200-499 mg/dL VERY HIGH >499 mg/dL Cholesterol, HDL 78 mg/dL 08/01/19 8:19 AM EST [facility] Comment: DESIRABLE: >60 mg/dL BORDERLINE: 40-59 mg/dL UNDESIRABLE: <40 mg/dL LDL Cholesterol 104 mg/dL 8:19 AM EST [facility] Comment: OPTIMAL: <100 mg/dL NEAR OPTIMAL: <130 mg/dL BORDERLINE HIGH: 130-159 mg/dL HIGH: 160-189 mg/dL VERY HIGH: >189 mg/dL VLDL 34.4 mg/dL 08/01/2024 8:19 AM EST [facility] Cholesterol/HDL Ratio 2.8 08/01/2024 8:19 AM EST [facility] Blood Structure of peripheral vein / Unknown Venipuncture / Unknown 08/01/2024 7:42 AM EST 08/01/2024 7:51 AM EST Anny Cullen RENTAL SALES ASSOCIATE LAB BLOOD ORDERABLES Final Resu lt [facility] [address] [place] [address], documented in this encounter Visit Diagnoses Diagnosis [...] documented as of this encounter Care Teams Sodder Relationship Specialty Start Date End Date Anny Cullen, RENTAL SALES ASSOCIATE [address] [place] [place], [place] [address] [place] [address] PCP - General Family Medicine 08/01/24 documented as of this encounter
--- OUTSIDE RECORDS SUMMARY | 2025-02-27 17:18 | XMS_ITS | Clinical Summary ---
Author Organization [facility] Address [address] [facility] [place] [address] Care Team Providers Care Contact Lens Molder Name Role Phone Unavailable Primary Care Provider Unavailabl e Encounters Date Type Department Care Team Description 01/16/2025 Telephone [facility] [id number] [address] [place] [address] Judy Metzger LPN from Last [...] Adults 18 yrs or above (or HM Modifier)([facility]) 11/06/1981 Hepatitis C Virus Infection in Adolescents and Adults: Screening (or Modifier) ([facility]) 11/06/1981 SDOR Screening Reminder: Joanie grace for all adults ([facility]) 11/06/1981 Tobacco Smoking Cessation: i n Adults excluding Women: Behavioral and Pharmacotherapy Interventions ([facility]) 11/06/1981 DTaP/Tdap/Td Vaccines ([facility]) (1 - Tdap) 11/06/1982 Cervical Cancer Screenin 1-65 yrs of age (or Modifier) 11/06/1984 Cervical Cancer Screening: P ap every 3 yrs pts age 21-65 11/06/1984 Cervical Cancer: Pap Screeni ng with Modifier timing ([facility]) 11/06/1984 Cervical Cancer: hrHPV alone or with cotesting Pap for Pts 30-65yrs screening every 5yrs ([facility]) 11/06/1984 Colorectal Cancer Screening 45 -75 Yrs (or HM Modifier ) 11/06/2008 Colorectal Cancer: FLEXIBLE SIGMOIDOSCOPY Screening every 5 yrs 11/06/2008 Colorectal Cancer: Fecal Imm unochemical Test (FIT) Annually [facility] 11/06/2008 Colorectal Cancer: High-sens itivity gFOBT Screening Annually [facility] 11/06/2008 Colorectal Cancer: Stool Col oguard Screening every 3 yrs 11/06/2008 Colorectal Cancer:CT Colonography Screening every 5 yr s 11/06/2008 Breast Cancer: Screening Joanie ually age 50-74 yrs (or HM Modifier)([facility]) 11/06/2013 Pneumococcal Vaccination Scr eening: Patients 50+ yrs of age ([facility]) (1 of 1 - PCV) 11/06/2013 Zoster/Shingles Vaccine Seri es Screening: Adults aged 18+ yrs (or HM Modifiers)([facility]) (1 of 2) 11/06/2013 Flu Vaccination: Yearly for ages 18mos through 64 years (or Modifier)([facility]) 01/10/2025 COVID-19 Vaccine Screening: Initial Series and Booster Status ([facility]) ( - 2023- season) 2025 RSV Vaccines (1 - 1-dose 75+ series) 11/06/2038 [employer] Devices Not on file
== END 2025-02-27 16:16 | disposition home or self-care (01) ==
LOC: HO.MRI 16:15
PROVIDERS: PCP Nurse Practitioner Family; Visit Provider Neurological Surgery
DX: M50.10 Cervical disc disorder with radiculopathy, unspecified cervical region (principal)
CPT/HCPCS: 72141

== ENCOUNTER → 2025-02-27 16:24 | Outpatient (BNV) | payer BC, SELFPAY | PROVIDERS: PCP Nurse Practitioner Family; Visit Provider Radiology Diagnostic Radiology | DX: M48.02 Spinal stenosis, cervical region (principal); M54.12 Radiculopathy, cervical region | CPT/HCPCS: 72141 ==

== ENCOUNTER 2025-02-28 14:24 | Outpatient (AMB) | payer BC, SELFPAY ==
--- OUTSIDE RECORDS SUMMARY | 2025-02-28 14:30 | XMS_ITS | Encounter Summary ---
Author Organization [facility] Address [address] [place] [address] Care Team Providers Care Food Service Kitchen Supervisor Name Role Phone Anny Cullen AIR TANK ASSEMBLER Primary Care Provider [phone] Encounter Details Date Type Department Care Team (Late st Contact Info) Description 09/25/2023 Lab Requisition [facility] [address] [place] [address] Anny Cullen, AIR TANK ASSEMBLER [address] [address] Cough, unspecified Social History Tobacco Use Types [...] Info) Description 08/19/2025 7:40 AM EDT Appointment [facility] [address] [place] [address] documented as of this encounter Procedures * Due to [place] state law, this organization might not be sharing negative HIV tests. Procedure Name Priority Date/Time Associated Diagnosis Comments MVL QS - COVID-19, FLU A/B & RSV RNA PCR, SYMPTOMATIC Routine 09/25/2023 12:40 PM EDT Cough, unspecified documented in this encounter Results * Due to [place] state law, this organization might not be sharing negative HIV tests. * COVID-19, Flu A/B & RSV RNA PCR, Symptomatic (09/25/2023 12:40 PM EDT) [facility] PCR, SARS CoV-2 RNA Not Detected Not Detected CEPHEID GENEXPERT 09/25/2023 1:24 PM EDT [facility] Flu A RNA PCR Not Detected Not Detected CEPHEID GENEXPERT 09/25/2023 1:24 PM EDT [facility] Flu B RNA PCR Not Detected Not Detected CEPHEID GENEXPERT 09/25/2023 1:24 PM EDT [facility] RSV RNA PCR Not Detected Not Detected CEPHEID GENEXPERT 09/25/2023 1:24 PM EDT [facility] Comment: Limitations: This RSV test [...] PM EDT 09/25/2023 12:40 PM EDT Narrative [facility] - 09/25/2023 1:24 PM EDT Methodology: The [employer] GeneXpert CoV-2/Flu/RSV plus assay is For Use Under an Emergency Use Authorization (EUA) Only with [employer]. The CoV-2/Flu/RSV plus assay is a [...] other patient management decisions. us Anny Cullen AIR TANK ASSEMBLER LAB BODY FLUIDS AND STOOLS MIKE SKAGGS Final Result [facility] [address] [facility] [address] [place] [address], documented in this encounter Visit Diagnoses Diagnosis [...] documented as of this encounter Care Teams Food Service Kitchen Supervisor Relationship Specialty Start Date End Date Anny Cullen, AIR TANK ASSEMBLER [address] [facility] [address] [place] [address] PCP - General Family Medicine 08/01/24 documented as of this encounter
--- OUTSIDE RECORDS SUMMARY | 2025-02-28 14:30 | XMS_ITS | Clinical Summary ---
Author Organization [facility] Address [address] [facility] [place] [place] [address] Care Team Providers Care Upsetter Name Role Phone Unavailable Primary Care Provider Unavailabl e Encounters Date Type Department Care Team Description 01/16/2025 Telephone [facility] [id number] [address] [place] [address] Judy Metzger LPN from Last [...] Adults 18 yrs or above (or HM Modifier)([facility]) 11/06/1981 Hepatitis C Virus Infection in Adolescents and Adults: Screening (or Modifier) ([facility]) 11/06/1981 SDMD Screening Reminder: Joanie grace for all adults ([facility]) 11/06/1981 Tobacco Smoking Cessation: i n Adults excluding Women: Behavioral and Pharmacotherapy Interventions ([facility]) 11/06/1981 DTaP/Tdap/Td Vaccines ([facility]) (1 - Tdap) 11/06/1982 Cervical Cancer Screenin 1-65 yrs of age (or Modifier) 11/06/1984 Cervical Cancer Screening: P ap every 3 yrs pts age 21-65 11/06/1984 Cervical Cancer: Pap Screeni ng with Modifier timing ([facility]) 11/06/1984 Cervical Cancer: hrHPV alone or with cotesting Pap for Pts 30-65yrs screening every 5yrs ([facility]) 11/06/1984 Colorectal Cancer Screening 45 -75 Yrs (or HM Modifier ) 11/06/2008 Colorectal Cancer: FLEXIBLE SIGMOIDOSCOPY Screening every 5 yrs 11/06/2008 Colorectal Cancer: Fecal Imm unochemical Test (FIT) Annually [facility] 11/06/2008 Colorectal Cancer: High-sens itivity gFOBT Screening Annually [facility] 11/06/2008 Colorectal Cancer: Stool Col oguard Screening every 3 yrs 11/06/2008 Colorectal Cancer:CT Colonography Screening every 5 yr s 11/06/2008 Breast Cancer: Screening Joanie ually age 50-74 yrs (or HM Modifier)([facility]) 11/06/2013 Pneumococcal Vaccination Scr eening: Patients 50+ yrs of age ([facility]) (1 of 1 - PCV) 11/06/2013 Zoster/Shingles Vaccine Seri es Screening: Adults aged 18+ yrs (or HM Modifiers)([facility]) (1 of 2) 11/06/2013 Flu Vaccination: Yearly for ages 18mos through 64 years (or Modifier)([facility]) 01/10/2025 COVID-19 Vaccine Screening: Initial Series and Booster Status ([facility]) ( - 2023- season) 2025 RSV Vaccines (1 - 1-dose 75+ series) 11/06/2038 [employer] Not on file
--- OUTSIDE RECORDS SUMMARY | 2025-02-28 14:30 | XMS_ITS | Encounter Summary ---
Author Organization [facility] Address [address] [facility] [place] [address] Care Team Providers Care Hospital Cleaner Name Role Phone Unavailable Primary Care Provider Unavailabl e Encounter Details Date Type Department Care Team (Late st Contact Info) Description 01/16/2025 Telephone [facility] [id number] [address] [place] [address] Judy Metzger LPN [address] [place] [address] Social History Tobacco Use Types Packs/Day Years [...]
--- OUTSIDE RECORDS SUMMARY | 2025-02-28 14:30 | XMS_ITS | Clinical Summary ---
Author Organization [facility] Address [address] [place] [address] Care Team Providers Care Control Operator Flow Coat Name Role Phone Anny Cullen TITLE CURATIVE SPECIALIST Primary Care Provider [phone] Allergies Active Allergy Reactions Criticality Noted Date [...] Type Department Care Team Description 02/14/2025 Refill [facility] [address] [place] [address] Ashanti Peterson MD 01/23/2025 10:15 AM EDT Office Visit [facility] [address] [place] [address] Ashanti Peterson MD Neck pain (Primary Dx) 01/07/2025 8:30 AM EDT Follow-Up [address] Physiatry [address] [address] Farhan Estrada MD Neck pain (Primary Dx); Cervical radiculopathy; Facet arthropathy, cervical 12/20/2024 myChart Message [address] [address] Farhan Estrada MD My procedure yesterday 12/19/2024 9:00 AM EDT Procedure visit [facility] Pain Management Department [address] [place] [address] Cervical radiculopathy (Primary Dx) 12/19/2024 7:20 AM EDT Ancillary Procedure [facility] Pain Management Department [address] [place] [address] Neck pain 12/18/2024 8:30 AM EDT Follow-Up [address] [address] Farhan Estrada MD Neck pain (Primary Dx); Cervical radiculopathy 12/18/[address] [address] Aga Licona LPN pre-procedure guidelines. 12/09/[address] [place] [address] Farhan Estrada MD 12/08/2024 Results Follow-Up [address] [address] Farhan Estrada MD 12/06/2024 6:32 AM EDT - 12/06/2024 11:59 PM EDT Hospital Encounter [address] [address] Cervicalgia Discharge Disposition: Home or Self Care (01) 12/06/2024 Orders Only [address] [address] Farhan Estrada MD Cervicalgia from Last 3 [...] Info) Description 08/19/2025 7:40 AM EDT Appointment [facility] [address] [place] [address] Health Maintenance Due Date Last Done Comments [...] complete this topic Procedures * Due to [facility] law, this organization might not be sharing negative HIV tests. Procedure Name Priority Date/Time Associated Diagnosis Comments MVL QS - COVID-19, FLU A/B & RSV RNA PCR, SYMPTOMATIC Routine 01/16/2025 12:21 PM EDT Cough, unspecified type [place] GUIDED INJECTION HH SB PAIN Routine 12/19/2024 9:30 AM EDT Neck pain VA NJX DX/THER SBST INTRLMNR CRV/THRC W/IMG GDN [...] to Health Maintenance Results * Due to [facility] law, this organization might not be sharing negative HIV tests. * COVID-19, Flu A/B & RSV RNA PCR, Symptomatic (01/16/2025 12:21 PM EDT) PCR, SARS CoV-2 RNA Not Detected Not Detected [employer] 01/16/2025 1:07 PM EDT [facility] Flu A RNA PCR Not Detected Not Detected [employer] 01/16/2025 1:07 PM EDT [facility] Flu B RNA PCR Not Detected Not Detected [employer] 01/16/2025 1:07 PM EDT [facility] RSV RNA PCR Not Detected Not Detected [employer] GENEXPERT 01/16/2025 1:07 PM EDT [facility] Comment: Limitations: This RSV test [...] PM EDT 01/16/2025 12:22 PM EDT Narrative [facility] - 01/16/2025 1:07 PM EDT Methodology: The [employer] GeneXpert CoV-2/Flu/RSV plus assay is For Use Under an Emergency Use Authorization (EUA) Only with [employer]. The CoV-2/Flu/RSV plus assay is a [...] or other patient management decisions. Anny Cullen TITLE CURATIVE SPECIALIST LAB BODY FLUIDS AND STOOLS MIKE SKAGGS Final Result [facility] [address] [place] [address], [place] [phone] * [place] Guided Injection [facility] (12/19/2024 9:30 AM EDT) Narrative IMAGING - 12/19/2024 4:18 PM EDT Please see Final Results in Notes section in Chart Review. Farhan CURRY FLUOROSCOPY PROC EDURES Final Result IMAGING * VA NJX DX/THER SBST INTRLMNR CRV/THRC W/IMG GDN [...] Patient's understanding of procedure matches consent: Yes [place] Protocol: Procedure consent matches procedure scheduled: Yes [...] outpatient to the ambulatory injection suite at [facility]. Vital signs were monitored before and [...] guidance for needle positioning Indication: cervical radiculopathy. [place] Protocol was done prior to the start [...] to obtain the completed interpretation. Workstation ID: [id number] Narrative 12/06/2024 3:40 PM EDT EXAMINATION: MRI [...] or neural foraminal stenosis. Resulting Agency Comment [id number] Procedure Note Betzy Graham MD - 12/06/2024 [...] possible to obtain thecompleted interpretation. Workstation ID: [id number] us Farhan Estrada MD IMG MRI PROCEDURES F inal Result * COLONOSCOPY (10/07/2024) Narrative Procedure Note Spencer Schreiber MD - 10/07/2024 7:03 AM EDT [facility] Patient Name: Alexia Dwyer Procedure [...] PM EDT Alexia Dwyer Exam Date: 08/13/[address] [address] EXAMINATION JOSE RAMON Bilateral Screening Digital Mammogram With Doug. INDICATION Alexia Dwyer is a 58 y.o. female and is seen for: JOSE RAMON Bilateral Screening Digital Mammogram With Doug. CC and MLO views were obtained. FDA approved [employer] AI (artificial intelligence) software and R2 CAD [...] interpretation. Juan Snider MD Resulting Agency Comment [id number] us Anny Cullen NP IMG BI PROCEDURES Final Result * Hemoglobin A1c (08/01/2024 7:42 AM EST) Hemoglobin A1c 5.5 4.0 - 5.7 % 08/01/2024 8:18 AM EST [facility] Estimated Average Glucose 111 mg/dL 08/01/2024 8:18 AM EST [facility] Blood Structure of peripheral vein / Unknown Venipuncture / Unknown 08/01/2024 7:42 AM EST 08/01/2024 7:51 AM EST us Anny Cullen NP LAB BLOOD ORDERABLES Final Resu lt [facility] [address] [place] [address] [address] [place] [address], [place] [phone] * (ABNORMAL) Comprehensive Metabolic Panel (08/01/2024 7:42 AM EST) NA 144 136 - 145 mmol/L 08/01/2024 8:19 AM EST [facility] K 4.6 3.5 - 5.1 mmol/L 08/01/2024 8:19 AM EST [facility] Cl 105 98 - 109 mmol/L 08/01/2024 8:19 AM EST [facility] CO2 27 22 - 32 mmol/L 08/01/2024 8:19 AM [facility] Anion Gap 17 >=0 08/01/2024 8:19 AM [facility] Glucose 101(H) 60 - 99 mg/dL 08/01/2024 8:19 AM [facility] Creatinine 0.87 0.50 - 1.12 mg/dL 08/01/2024 8:19 AM [facility] Calcium 9.6 8.4 - 10.4 mg/dL 08/01/2024 8:19 AM [facility] Total Protein 7.3 6.6 - 8.7 g/dL 08/01/2024 8:19 AM [facility] Albumin 4.4 3.5 - 5.0 g/dL 08/01/2024 8:19 AM [facility] Bilirubin, Total 0.4 0.2 - 1.2 mg/dL 08/01/2024 8:19 AM [facility] Alkaline Phosphatase 60 40 - 129 U/L 08/01/2024 8:19 AM [facility] AST 25 0 - 33 U/L 08/01/2024 8:19 AM [facility] ALT 19 <=33 U/L 08/01/2024 8:19 AM [facility] BUN 13 8 - 23 mg/dL 08/01/2024 8:19 AM [facility] eGFR 76 >=60 mL/min/1. 73m2 08/01/2024 8:19 AM [facility] Comment:The estimated glomer ular filtration rate [...] - 4.2 g/dL 08/01/2024 8:19 AM EST [facility] A/G Ratio 1.5 1.5 - 3.0 08/01/2024 8:19 AM EST [facility] Blood Structure of peripheral vein / Unknown Venipuncture / Unknown 08/01/2024 7:42 AM EST 08/01/2024 7:51 AM EST Anny Cullen NP LAB BLOOD ORDERABLES Final Resu lt [facility] [address] [place] [address], from Last 3 Months or Most Recently Relevant to Health Maintenance Insurance [facility] [employer] Advance Directives * Full Code (Latest Code Status on File) Date Activated Date Inactivated Comments 10/07/2024 8:10 AM 10/07/2024 12:03 PM Care Teams Control Operator Flow Coat Relationship Specialty Start Date End Date Anny Cullen, GENEVIEVE [address] [place] [address] [address] [place] [address] PCP - General Family Medicine 08/01/24
--- OUTSIDE RECORDS SUMMARY | 2025-02-28 14:30 | XMS_ITS | Encounter Summary ---
Author Organization [facility] Address [address] [place] [address] Care Team Providers Care Hardboard Grinder Name Role Phone Anny Cullen ART TRACER Primary Care Provider [phone] Encounter Details Date Type Department Care Team (Late st Contact Info) Description 01/29/2024 Orders Only [facility] [address] [place] [address] Anny Cullen, ART TRACER [id number] [place] [address] Hyperlipidemia, unspecified hyperlipidemia type (Primary Dx); Hyperglycemia [...] Description 08/19/2025 7:40 AM EDT Appointment [facility] [address] [place] [address] documented as of this encounter Results * Due to [place] state law, this organization might not be sharing negative HIV tests. * Hemoglobin A1c (08/01/2024 7:42 AM EST) Hemoglobin A1c 5.5 4.0 - 5.7 % 08/01/2024 8:18 AM EST [facility] Estimated Average Glucose 111 mg/dL 08/01/2024 8:18 AM EST [facility] Blood Structure of peripheral vein / Unknown Venipuncture / Unknown 08/01/2024 7:42 AM EST 08/01/2024 7:51 AM EST Anny Cullen ART TRACER LAB BLOOD ORDERABLES Final Resu lt [facility] [address] [facility] [address] [place] [address], [place] [phone] * (ABNORMAL) Comprehensive Metabolic Panel (08/01/2024 7:42 AM EST) NA 144 136 - 145 mmol/L 08/01/2024 8:19 AM EST [facility] K 4.6 3.5 - 5.1 mmol/L 08/01/2024 8:19 AM EST [facility] Cl 105 98 - 109 mmol/L 08/01/2024 8:19 AM EST [facility] CO2 27 22 - 32 mmol/L 08/01/2024 8:19 AM EST [facility] Anion Gap 17 >=0 08/01/2024 8:19 AM EST [facility] Glucose 101(H) 60 - 99 mg/dL 08/01/2024 8:19 AM EST [facility] Creatinine 0.87 0.50 - 1.12 mg/dL 08/01/2024 8:19 AM EST [facility] Calcium 9.6 8.4 - 10.4 mg/dL 08/01/2024 8:19 AM EST [facility] Total Protein 7.3 6.6 - 8.7 g/dL 08/01/2024 8:19 AM EST [facility] Albumin 4.4 3.5 - 5.0 g/dL 08/01/2024 8:19 AM EST [facility] Bilirubin, Total 0.4 0.2 - 1.2 mg/dL 08/01/2024 8:19 AM EST [facility] Alkaline Phosphatase 60 40 - 129 U/L 08/01/2024 8:19 AM EST [facility] AST 25 0 - 33 U/L 08/01/2024 8:19 AM EST [facility] ALT 19 <=33 U/L 08/01/2024 8:19 AM EST [facility] BUN 13 8 - 23 mg/dL 08/01/2024 8:19 AM EST [facility] eGFR 76 >=60 mL/min/1. 73m2 08/01/2024 8:19 AM EST [facility] Comment:The estimated glomer ular filtration rate [...] - 4.2 g/dL 08/01/2024 8:19 AM EST [facility] A/G Ratio 1.5 1.5 - 3.0 08/01/2024 8:19 AM EST [facility] Blood Structure of peripheral vein / Unknown Venipuncture / Unknown 08/01/2024 7:42 AM EST 08/01/2024 7:51 AM EST us Anny Cullen NP LAB BLOOD ORDERABLES Final Resu lt [facility] [address] [facility] [address] [place] [address], * Lipid panel (08/01/2024 7:42 AM EST) Cholesterol 216 mg/dL 08/01/2024 8:19 AM EST [facility] Comment: DESIRABLE: <200 mg/dL BORDERLINE HIGH: 200-239 mg/dL HIGH: >239 mg/dL Triglycerides 172 mg/dL 08/01/2024 8:19 AM EST [facility] Comment: NORMAL: <150 mg/dL BORDERLINE HIGH: 150-199 mg/dL HIGH: 200-499 mg/dL VERY HIGH >499 mg/dL Cholesterol, HDL 78 mg/dL 08/01/19 8:19 AM EST [facility] Comment: DESIRABLE: >60 mg/dL BORDERLINE: 40-59 mg/dL UNDESIRABLE: <40 mg/dL LDL Cholesterol 104 mg/dL 8:19 AM EST [facility] Comment: OPTIMAL: <100 mg/dL NEAR OPTIMAL: <130 mg/dL BORDERLINE HIGH: 130-159 mg/dL HIGH: 160-189 mg/dL VERY HIGH: >189 mg/dL VLDL 34.4 mg/dL 08/01/2024 8:19 AM EST [facility] Cholesterol/HDL Ratio 2.8 08/01/2024 8:19 AM EST [facility] Blood Structure of peripheral vein / Unknown Venipuncture / Unknown 08/01/2024 7:42 AM EST 08/01/2024 7:51 AM EST Anny Cullen ART TRACER LAB BLOOD ORDERABLES Final Resu lt [facility] [address] [place] [address], documented in this encounter Visit Diagnoses Diagnosis [...] documented as of this encounter Care Teams Hardboard Grinder Relationship Specialty Start Date End Date Anny Cullen, ART TRACER [address] [place], [place] [address] [place] [address] PCP - General Family Medicine 08/01/24 documented as of this encounter
--- NOTE | 2025-02-28 15:57 | A.SPINEOV_ITS ---
Intake Visit Reasons: MRI f/u Intake Note: Ms. Dwyer is here today to F/u on the results to her MRI Artificial Glass Eye Maker Required: No Allergies erythromycin base Allergy (Severe, Verified 02/07/25 14:22) Flu Like Symptoms hydrochlorothiazide Allergy (Severe, Verified 02/07/25 14:22) Flu Like Symptoms lisinopril Allergy (Severe, Verified 02/07/25 14:22) Flu Like Symptoms Assessment & Plan Assessment & Plan (1) Herniation of cervical intervertebral disc with radiculopathy: Code(s): M50.10 - Cervical disc disorder with radiculopathy, unspecified cervical region Category: Medical Plan: Dear colleague, On 02/28/2025, I saw for follow-up Alexia Dwyer to review the MRI of the cervical spine. I refer to my previous note for detailed history and physical exam. The patient continues to suffer from severe left-sided radiculopathy. I repeated an MRI of the cervical spine to make sure that the levels C3-4 and C4-5 are truly abnormal. The previous MRI had too many motion artifacts. The new MRI confirms that the C3-4 level shows severe compression of the left C4 nerve root and the same is true for the C4-5 level. Therefore I continued to recommend an anterior diskectomy and fusion C3-4 and C4-5. We discussed the procedure and expected postoperative course. She wants to proceed. We will schedule her for 03/12/2025. I spent 20 minutes in his consult to review imaging and discussing plan of care. Ike Nicholson MD, PhD Spine Fellowship Trained Neurosurgeon Director, [facility] (2) Cervical radiculopathy: Code(s): M54.12 - Radiculopathy, cervical region Category: Medical Plan: w Coding Level of Care Code Est Pt Level 3 (91435) Diagnoses Herniation of cervical intervertebral disc with radiculopathy M50.10 Cervical radiculopathy M54.12
== END 2025-02-28 16:29 | disposition home or self-care (01) ==
PROVIDERS: Visit Provider Neurological Surgery
DX: M50.10 Cervical disc disorder with radiculopathy, unspecified cervical region (principal); M54.12 Radiculopathy, cervical region
CPT/HCPCS: 99213

== ENCOUNTER 2025-04-17 05:43 | Day surgery (SDC) | payer BC, SELFPAY ==
--- OUTSIDE RECORDS SUMMARY | 2025-03-06 17:27 | XMS_ITS | Clinical Summary ---
Author Organization [facility] Address [address] [place] [address] Care Team Providers Care Real Estate Professional Name Role Phone Anny Cullen TNT LINE SUPERVISOR Primary Care Provider [phone] Allergies Active Allergy Reactions Criticality Noted Date [...] Type Department Care Team Description 02/14/2025 Refill [facility] B [address] [place] [address] Ashanti Peterson MD 01/23/2025 10:15 AM EDT Office Visit [facility] B [address] [place] [address] Ashanti Peterson MD Neck pain (Primary Dx) 01/07/2025 8:30 AM EDT Follow-Up [address] Physiatry [address] [address] Farhan Estrada MD Neck pain (Primary Dx); Cervical radiculopathy; Facet arthropathy, cervical 12/20/2024 myChart Message [address] [address] Farhan Estrada MD My procedure yesterday 12/19/2024 9:00 AM EDT Procedure visit [facility] Pain Management Department [address] [place] [address] Cervical radiculopathy (Primary Dx) 12/19/2024 7:20 AM EDT Ancillary Procedure [facility] Pain Management Department [address] [place] [address] Neck pain 12/18/2024 8:30 AM EDT Follow-Up [address] [address] Farhan Estrada MD Neck pain (Primary Dx); Cervical radiculopathy 12/18/[address] [address] Aga Licona LPN pre-procedure guidelines. 12/09/[address] [place] [address] Farhan Estrada MD 12/08/2024 Results Follow-Up [address] [address] Farhan Estrada MD 12/06/2024 6:32 AM EDT - 12/06/2024 11:59 PM EDT Hospital Encounter [address] [address] Cervicalgia Discharge Disposition: Home or Self Care (01) 12/06/2024 Orders Only [address] [address] Farhan Estrada MD Cervicalgia from Last 3 [...] Care Team (Late st Contact Info) Description 04/28/2025 2:00 PM EST Procedure visit [facility] Audiology Department [address] [place] [address] Danni Szymanski, AUD, CCC-A [address] [place] [address] 08/19/2025 7:40 AM EDT Appointment [facility] [address] [place] [address] Health Maintenance Due Date Last Done Comments [...] Colon Cancer Screening 10/07/2034 Colonoscopy 10/07/2034 10/07/2024, 09/11, 12/16/2014 RSV Vaccine (60+ years old and patients) (1 - 1-dose 75+ series) 11/06/2038 Zoster Vaccines Completed 03/21/2022, 01/13/2022 Hepatitis B Vaccines Aged Out No long er eligible based on patient's age to complete this topic Procedures * Due to [place] [employer] law, this organization might not be sharing negative HIV tests. Procedure Name Priority Date/Time Associated Diagnosis Comments MVL QS - COVID-19, FLU A/B & RSV RNA PCR, SYMPTOMATIC Routine 01/16/2025 12:21 PM EDT Cough, unspecified type FL GUIDED INJECTION HH SB PAIN Routine 12/19/2024 9:30 AM EDT Neck pain AK NJX DX/THER SBST INTRLMNR CRV/THRC W/IMG GDN [...] to Health Maintenance Results * Due to [place] [employer] law, this organization might not be sharing negative HIV tests. * COVID-19, Flu A/B & RSV RNA PCR, Symptomatic (01/16/2025 12:21 PM EDT) PCR, SARS CoV-2 RNA Not Detected Not Detected CEPHEID GENEXPERT 01/16/2025 1:07 PM EDT [facility] Flu A RNA PCR Not Detected Not Detected CEPHEID GENEXPERT 01/16/2025 1:07 PM EDT [facility] Flu B RNA PCR Not Detected Not Detected CEPHEID GENEXPERT 01/16/2025 1:07 PM EDT [facility] RSV RNA PCR Not Detected Not Detected CEPHEID GENEXPERT 01/16/2025 1:07 PM EDT [facility] Comment: Limitations: This RSV test [...] PM EDT 01/16/2025 12:22 PM EDT Narrative [facility] - 01/16/2025 1:07 PM EDT Methodology: [employer] GeneXpert CoV-2/Flu/RSV plus assay is For Use Under an Emergency Use Authorization (EUA) Only with [employer]. The CoV-2/Flu/RSV plus assay is a [...] other patient management decisions. us Anny Cullen TNT LINE SUPERVISOR LAB BODY FLUIDS AND STOOLS MIKE SKAGGS Final Result Performing Organization Address City/State/[facility] Co de Phone Number [facility] [address] [place] [address] [place] [address], * [place] Guided Injection [facility] (12/19/2024 9:30 AM EDT) Narrative IMAGING - 12/19/2024 4:18 PM EDT Please see Final Results in Notes section in Chart Review. us Farhan CURRY FLUOROSCOPY PROC EDURES Final Result IMAGING * AK NJX DX/THER SBST INTRLMNR CRV/THRC W/IMG GDN (12/19/2024 9:00 AM EDT) Narrative Farhan Estrada MD - 12/19/2024 9:00 AM EDT Farhan [...] Patient's understanding of procedure matches consent: Yes [place] Protocol: Procedure consent matches procedure scheduled: Yes [...] outpatient to the ambulatory injection suite at [facility]. Vital signs were monitored before and [...] guidance for needle positioning Indication: cervical radiculopathy. [place] Protocol was done prior to the start [...] to obtain the completed interpretation. Workstation ID: [id number] Narrative 12/06/2024 3:40 PM EDT EXAMINATION: MRI [...] or neural foraminal stenosis. Resulting Agency Comment [id number] Procedure Note Betzy Graham MD - 12/06/2024 [...] possible to obtain thecompleted interpretation. Workstation ID: [id number] us Farhan Estrada MD IMG MRI PROCEDURES F inal Result * COLONOSCOPY (10/07/2024) Narrative Procedure Note Spencer Schreiber MD - 10/07/2024 7:03 AM EDT [facility] Patient Name: Alexia Dwyer Procedure Date: [...] Initiated On: 10/07/2024 7:03 AM us Spencer Schreiber MD PROVATION PROCEDURES Final Re sult * JOSE RAMON Bilateral Screening Digital Mammogram With Doug (08/13/2024 7:31 AM EST) Anatomical Region Laterality Modality Breast Bilateral Mammography Narrative 08/23/2024 7:32 PM EDT Alexia Dwyer Exam Date: 08/13/[address] [place], [place] [address] EXAMINATION JOSE RAMON Bilateral Screening Digital Mammogram With Doug. INDICATION Alexia Dwyer is a 58 y.o. female and is seen for: JOSE RAMON Bilateral Screening Digital Mammogram With Doug. CC and MLO views were obtained. FDA approved dscout AI (artificial intelligence) software and R2 CAD were used as a concurrent reading aid in the interpretation of this study. COMPARISON Compared to: 08/08/2023 [facility] Bilateral Screening Digital Mammogram With Doug and [...] interpretation. Juan Snider MD Resulting Agency Comment [id number] us Anny Cullen NP IMG BI PROCEDURES Final Result * Hemoglobin A1c (08/01/2024 7:42 AM EST) [facility] Hemoglobin A1c 5.5 4.0 - 5.7 % 08/01/2024 8:18 AM EST [facility] Estimated Average Glucose 111 mg/dL 08/01/2024 8:18 AM EST [facility] Blood Structure of peripheral vein / Unknown Venipuncture / Unknown 08/01/2024 7:42 AM EST 08/01/2024 7:51 AM EST us Anny Cullen NP LAB BLOOD ORDERABLES Final Resu lt [facility] [address] [facility] [address] [place] [address], [place] [phone] * (ABNORMAL) Comprehensive Metabolic Panel (08/01/2024 7:42 AM EST) Pathologist [facility] NA 144 136 - 145 mmol/L 08/01/2024 8:19 AM [facility] K 4.6 3.5 - 5.1 mmol/L 08/01/2024 8:19 AM [facility] Cl 105 98 - 109 mmol/L 08/01/2024 8:19 AM [facility] CO2 27 22 - 32 mmol/L 08/01/2024 8:19 AM [facility] Anion Gap 17 >=0 08/01/2024 8:19 AM [facility] Glucose 101(H) 60 - 99 mg/dL 08/01/2024 8:19 AM [facility] Creatinine 0.87 0.50 - 1.12 mg/dL 08/01/2024 8:19 AM [facility] Calcium 9.6 8.4 - 10.4 mg/dL 08/01/2024 8:19 AM [facility] Total Protein 7.3 6.6 - 8.7 g/dL 08/01/2024 8:19 AM [facility] Albumin 4.4 3.5 - 5.0 g/dL 08/01/2024 8:19 AM [facility] Bilirubin, Total 0.4 0.2 - 1.2 mg/dL 08/01/2024 8:19 AM [facility] Alkaline Phosphatase 60 40 - 129 U/L 08/01/2024 8:19 AM [facility] AST 25 0 - 33 U/L 08/01/2024 8:19 AM [facility] ALT 19 <=33 U/L 08/01/2024 8:19 AM [facility] BUN 13 8 - 23 mg/dL 08/01/2024 8:19 AM [facility] eGFR 76 >=60 mL/min/1. 73m2 08/01/2024 8:19 AM [facility] Comment:The estimated glomer ular filtration rate (eGFR) is calculated using a new formula developed by the NKF-ASN task force to eliminate race-based correction factors. The new formula uses serum/plasma creatinine, age, and gender to determine eGFR. A value below 60mls/min might indicate kidney disease and will be flagged. For additional information, see Rosalie et al, Am J Kidney Dis. 2021;79(2):268- 288, A Unifying Approach for GFR estimation: Recommendations of the NKF-ASN Task Force on Reassessing the Inclusion of Race in Diagnosing Kidney Disease . Globulin, Total 2.9 2.1 - 4.2 g/dL 08/01/2024 8:19 AM EST [facility] A/G Ratio 1.5 1.5 - 3.0 08/01/2024 8:19 AM EST [facility] Blood Structure of peripheral vein / Unknown Venipuncture / Unknown 08/01/2024 7:42 AM EST 08/01/2024 7:51 AM EST Anny Cullen NP LAB BLOOD ORDERABLES Final Resu lt Performing Organization Address City/State/[facility] Co de Phone Number [facility] [address] [place] [address], from Last 3 Months or Most Recently Relevant to Health Maintenance Insurance [facility] FEDERAL Advance Directives * Full Code (Latest Code Status on File) Date Activated Date Inactivated Comments 10/07/2024 8:10 AM 10/07/2024 12:03 PM Care Teams Real Estate Professional Relationship Specialty Start Date End Date Anny Cullen, TNT LINE SUPERVISOR [address] [place] [address] PCP - General Family Medicine 08/01/24
--- OUTSIDE RECORDS SUMMARY | 2025-03-06 17:27 | XMS_ITS | Patient Health Record ---
Author Organization [facility] Address [address] [place] [address] Care Team Providers Care Motor Vehicle Assembly Supervisor Name Role Phone Anthony Chacon DO Primary Care Provider Santo Brar MD, Brenton Unavailable [phone] Allergies Allergen (clinical drug ingredient) Drug/Non Drug Allergy documented on EMR Reaction Allergy Type Onset Date Status erythromycin Erythromycin Unknown Drug Allergy A ctive Reason For Referral No Information Medications Medication SIG (Take, Route, Frequency, Duration) Notes Start Date End Date Status CONTROL DIRECTED *Please review f or potential replacement for e-prescription and drug interaction check* Active Zoloft 50 MG 1 TAB ORAL QD; Duration: 30 DAYS *Please review and pick correct strength-formulation from Medispan options. If intended option is not shown, discontinue and re-order from Quick Search* Active Atenolol 100 MG 1 tab(s) orally once a day Active Plan Of Treatment No Information Insurance Providers Payer Name Payer Address Payer Phone Subscriber Number Group Number Insured Name Patient Relationship to Insured Coverage Start Date Coverage End Date BCBS / Federal [address] [place] [address] [id number] Judi Dwyer Self - patient is the insured Medical (General) History Medical History History ICD Code hypertension menopausal symptoms Surgical History Surgery Date(Month/Year) appendectomy C section
--- OUTSIDE RECORDS SUMMARY | 2025-03-06 17:27 | XMS_ITS | Patient Health Record ---
Author Organization [facility] Address [address] [facility] [address] [place] [address] Care Team Providers Care Trouble Tracer Name Role Phone THANH VILLATORO Primary Care Provider Tre Rawls MD MSc, Santa Unavailable [phone] Allergies Allergen (clinical drug ingredient) Drug/Non Drug Allergy documented on EMR Reaction Allergy Type Onset Date Status Information temporarily unavailable Arythromicin Unknown Drug Allergy Active Reason For Referral No Information Medications Medication SIG (Take, Route, Fr equency, Duration) Notes Start Date End Date Status Nortriptyline HCl 10 MG 1 capsule Orally po qhs; Duration: 30 day(s) 09/05/2011 Active Atenolol unknown 0.5 tablet Orally On ce a day; Duration: 30 day(s) Active Apri unknown 1 tablet Orally Once a day; Duration: 28 day(s) Active Zoloft unknown 1 tablet Orally Once a day; Duration: 30 day(s) Active Ibuprofen 600 MG 1 tablet Orally once a day, prn; Duration: 30 day(s) Active Problems Problem Type SNOMED Code ICD Code Onset Dates Problem Status W/U Status Risk Notes Problem Sciatica (13415855) Sciatica (724.3) Active confirmed Problem Lumbago (298878075) Lumbago (724.2) Active confirmed Problem Lumbosacral spondylosis without myelopathy (92665013) Lumbosacral spondylosis without myelopathy (721.3) Active confirmed Plan Of Treatment No Information Insurance Providers Payer Name Payer Address Payer Phone Subscriber Number Group Number Insured Name Patient Relationship to Insured Coverage Start Date Coverage End Date BCBS PPO [address] [place], [place] [id number] Alexia Dwyer Self - patient is the insured Medical (General) History Medical History History ICD Code Hypertension Anxiety disorder Surgical History Surgery Date(Month/Year) Appendectomy C section
--- OUTSIDE RECORDS SUMMARY | 2025-03-06 17:27 | XMS_ITS | Encounter Summary ---
Author Organization [facility] Address [address] [place] [address] Care Team Providers Care Line Closer Name Role Phone Anny Cullen SPORTS STATISTICIAN Primary Care Provider Encounter Details Date Type Department Care Team (Late st Contact Info) Description 01/29/2024 Orders Only [facility] [address] [place] [address] Anny Cullen, SPORTS STATISTICIAN [address] [facility] [address] [place] [address] Hyperlipidemia, unspecified hyperlipidemia type (Primary Dx); Hyperglycemia [...] Description 04/28/2025 2:00 PM EST Procedure visit [facility] Audiology Department [address] [place] [address] Danni Szymanski, CEE, CCC-A [address] [place] [address] 08/19/2025 7:40 AM EDT Appointment [facility] [address] [place] [address] documented as of this encounter Results * Due to [place] state law, this organization might not be sharing negative HIV tests. * Hemoglobin A1c (08/01/2024 7:42 AM EST) Hemoglobin A1c 5.5 4.0 - 5.7 % 08/01/2024 8:18 AM EST [facility] Estimated Average Glucose 111 mg/dL 08/01/2024 8:18 AM EST [facility] Blood Structure of peripheral vein / Unknown Venipuncture / Unknown 08/01/2024 7:42 AM EST 08/01/2024 7:51 AM EST Anny Cullen SPORTS STATISTICIAN LAB BLOOD ORDERABLES Final Resu lt Performing Organization Address City/State/[facility] Co de Phone Number [facility] [address] [facility] [address] [place] [address], * (ABNORMAL) Comprehensive Metabolic Panel (08/01/2024 7:42 AM EST) Pathologist [facility] NA 144 136 - 145 mmol/L 08/01/2024 8:19 AM EST [facility] K 4.6 3.5 - 5.1 mmol/L 08/01/2024 8:19 AM EST [facility] Cl 105 98 - 109 mmol/L 08/01/2024 8:19 AM EST [facility] CO2 27 22 - 32 mmol/L 08/01/2024 8:19 AM EST [facility] Anion Gap 17 >=0 08/01/2024 8:19 AM EST [facility] Glucose 101(H) 60 - 99 mg/dL 08/01/2024 8:19 AM EST [facility] Creatinine 0.87 0.50 - 1.12 mg/dL 08/01/2024 8:19 AM EST [facility] Calcium 9.6 8.4 - 10.4 mg/dL 08/01/2024 8:19 AM EST [facility] Total Protein 7.3 6.6 - 8.7 g/dL 08/01/2024 8:19 AM EST [facility] Albumin 4.4 3.5 - 5.0 g/dL 08/01/2024 8:19 AM EST [facility] Bilirubin, Total 0.4 0.2 - 1.2 mg/dL 08/01/2024 8:19 AM EST [facility] Alkaline Phosphatase 60 40 - 129 U/L 08/01/2024 8:19 AM EST [facility] AST 25 0 - 33 U/L 08/01/2024 8:19 AM EST [facility] ALT 19 <=33 U/L 08/01/2024 8:19 AM EST [facility] BUN 13 8 - 23 mg/dL 08/01/2024 8:19 AM EST [facility] eGFR 76 >=60 mL/min/1. 73m2 08/01/2024 8:19 AM EST [facility] Comment:The estimated glomer ular filtration [...] - 4.2 g/dL 08/01/2024 8:19 AM EST [facility] A/G Ratio 1.5 1.5 - 3.0 08/01/2024 8:19 AM EST [facility] Blood Structure of peripheral vein / Unknown Venipuncture / Unknown 08/01/2024 7:42 AM EST 08/01/2024 7:51 AM EST us Anny M Cullen SPORTS STATISTICIAN LAB BLOOD ORDERABLES Final Resu lt Performing Organization Address City/[facility]/ZIP Co de Phone Number [facility] [address] [address], [place] [phone] * Lipid panel (08/01/2024 7:42 AM EST) Cholesterol 216 mg/dL 08/01/2024 8:19 AM EST [facility] Comment: DESIRABLE: <200 mg/dL BORDERLINE HIGH: 200-239 mg/dL HIGH: >239 mg/dL Triglycerides 172 mg/dL 08/01/2024 8:19 AM EST [facility] Comment: NORMAL: <150 mg/dL BORDERLINE HIGH: 150-199 mg/dL HIGH: 200-499 mg/dL VERY HIGH >499 mg/dL Cholesterol, HDL 78 mg/dL 08/01/19 8:19 AM EST [facility] Comment: DESIRABLE: >60 mg/dL BORDERLINE: 40-59 mg/dL UNDESIRABLE: <40 mg/dL LDL Cholesterol 104 mg/dL 8:19 AM EST [facility] Comment: OPTIMAL: <100 mg/dL NEAR OPTIMAL: <130 mg/dL BORDERLINE HIGH: 130-159 mg/dL HIGH: 160-189 mg/dL VERY HIGH: >189 mg/dL VLDL 34.4 mg/dL 08/01/2024 8:19 AM EST [facility] Cholesterol/HDL Ratio 2.8 08/01/2024 8:19 AM EST [facility] Blood Structure of peripheral vein / Unknown Venipuncture / Unknown 08/01/2024 7:42 AM EST 08/01/2024 7:51 AM EST us Anny Cullen SPORTS STATISTICIAN LAB BLOOD ORDERABLES Final Resu lt Performing Organization Address City/[facility]/ZIP Co de Phone Number [facility] [address] [address], [place] [phone] documented in this encounter Visit Diagnoses Diagnosis [...] documented as of this encounter Care Teams Line Closer Relationship Specialty Start Date End Date Anny Cullen, SPORTS STATISTICIAN [address] [place] [address] PCP - General Family Medicine 08/01/24 documented as of this encounter
--- OUTSIDE RECORDS SUMMARY | 2025-03-06 17:27 | XMS_ITS | Encounter Summary ---
Author Organization [facility] Address [address] [place] [address] Care Team Providers Care Nitroglycerin Distributor Name Role Phone Anny Cullen MANAGER PHP Primary Care Provider [phone] Encounter Details Date Type Department Care Team (Late st Contact Info) Description 09/25/2023 Lab Requisition [facility] [address] [place] [address] nAny Cullen, MANAGER PHP [address] [facility] [address] [place] [address] Cough, unspecified Social History Tobacco Use Types [...] Description 04/28/2025 2:00 PM EST Procedure visit [facility] Audiology Department [address] [place] [address] Danni Szymanski AUD, CCC-A [address] [place] [address] 08/19/2025 7:40 AM EDT Appointment [address] [address] documented as of this encounter Procedures * Due to [place] [employer] law, this organization might not be sharing negative HIV tests. Procedure Name Priority Date/Time Associated Diagnosis Comments MVL QS - COVID-19, FLU A/B & RSV RNA PCR, SYMPTOMATIC Routine 09/25/2023 12:40 PM EDT Cough, unspecified documented in this encounter Results * Due to [place] law, this organization might not be sharing negative HIV tests. * COVID-19, Flu A/B & RSV RNA PCR, Symptomatic (09/25/2023 12:40 PM EDT) PCR, SARS CoV-2 RNA Not Detected Not Detected CEPHEID GENEXPERT 09/25/2023 1:24 PM EDT [facility] Flu A RNA PCR Not Detected Not Detected CEPHEID GENEXPERT 09/25/2023 1:24 PM EDT [facility] Flu B RNA PCR Not Detected Not Detected CEPHEID GENEXPERT 09/25/2023 1:24 PM EDT [facility] RSV RNA PCR Not Detected Not Detected CEPHEID GENEXPERT 09/25/2023 1:24 PM EDT [facility] Comment: Limitations: This RSV test [...] PM EDT 09/25/2023 12:40 PM EDT Narrative [facility] - 09/25/2023 1:24 PM EDT Methodology: The [employer] GeneXpert CoV-2/Flu/RSV plus assay is For Use Under an Emergency Use Authorization (EUA) Only with [employer]. The CoV-2/Flu/RSV plus assay is a [...] other patient management decisions. us Anny Cullen MANAGER PHP LAB BODY FLUIDS AND STOOLS MIKE SKAGGS Final Result [facility] [address] [facility] [address] [place] [address], documented in this encounter Visit Diagnoses Diagnosis [...] documented as of this encounter Care Teams Nitroglycerin Distributor Relationship Specialty Start Date End Date Anny Cullen, MANAGER PHP [address] [place] [address] [address] [place] [address] PCP - General Family Medicine 08/01/24 documented as of this encounter
[2025-04-07 12:02] VITALS: BP 177/70; RESP 20; O2SAT 99; BMI 28.8
--- NOTE | 2025-04-14 15:32 | PM.DS ---
DS: Providers Provider Date of Service: 04/17/25 Date of discharge: 04/17/25 Primary care physician: RODRICK Ritter Admitting clinician: Ike Nicholson DS: Diagnosis Discharge Diagnosis (1) Cervical radiculopathy: Status: Acute DS: Summary Time Attestation Discharge Coordination Time (in mins): 4 Quality: Safe Use of Opioids Does Pt have an Active Cancer Diagnosis on the Problem List?: No Quality: Stroke Does the patient have a stroke diagnosis?: No Physical Exam Vital Signs: Vital Signs: Last Vital Signs Resp 20 04/07/25 12:02 BP 177/70 H 04/07/25 12:02 Pulse Ox 99 04/07/25 12:02 O2 Del Method Room Air 04/07/25 12:02 BMI result Body Mass Index 28.8 Discharge Plan Discharge Patient Disposition: Home, Self-Care Referrals: Anny Cullen FNP [Primary Care Provider, Family Practice] - 1 Week Discharge Medications: New docusate sodium [Colace] 100 mg capsule 100 mg PO BID Qty: 20 0RF oxycodone 5 mg tablet 5 mg PO Q4H PRN (Reason: pain) Qty: 20 0RF Rx Instructions: Partial Fill upon patient request. Continued atorvastatin 10 mg tablet 10 mg PO QAM metoprolol succinate 200 mg tablet extended release 24 hr 200 mg PO QAM sertraline 100 mg tablet 150 mg PO QAM bupropion HCl 150 mg tablet extended release 24 hr 150 mg PO QAM ibuprofen 200 mg Tablet 400 mg PO Q6H PRN (Reason: Pain) cholecalciferol (vitamin D3) [Vitamin D3] 10 mcg (400 unit) Tablet,Chewable 10 mcg PO DAILY Discharge Orders: Discharge Order (Routine); Ordered 04/17/25 Ordered By: Tuan Hudson Diet: Advance to usual diet Activity on Discharge: As tolerated Activity Restrictions/Additional Instructions: After your spinal surgery we ask you to observe the following restrictions/guidelines: Activity: It is normal to feel some discomfort as you increase your activity, but that will improve with time. We ask you avoid heavy lifting or acitivities that cause pain. As a general rule, 8lbs is a safe limit for lifting right after surgery. Walk as much as you feel comfortable but not to exhaustion. You will feel extra tired the first few days after surgery. Stay well hydrated. It is OK to walk up and down stairs You may return to driving when you are off narcotics (such as vicodin, oxycodone, dilaudid, etc), and you are back to normal functional capacity. If you have any concerns please check with office before driving. Return to work is specific to each patient and each surgery, so please speak with your doctor/PA at first follow up. Please bring paperwork such as FMLA at that time if you need it filled out. Medications: For optimum pain control, it is best to start with a combination of 500 mg of Tylenol every 4 hours with 600 mg of Motrin every 8 hours, and use narcotics as needed in between for breakthrough pain. We will give you a short supply of narcotics after surgery (usually one weeks worth). If you need more please call the office but do not use more than prescribed. You will need to give our office 48 hours notice if you need narcotics refilled and we do not fill narcotics on weekends or evenings. If you are on a narcotic, it is a good idea to take a stool softener such as colace or senna to avoid constipation If you take blood thinner such as aspirin, Plavix, Coumadin, Effient, Eliquis etc for conditions such as Afib, DVT, Pulmonary embolus, coronary disease, stents etc please speak with your surgeon about specific details as to when you can resume these medications. Follow up: Please call the office, , after surgery to arrange a 3 week follow up for wound check. Wound Care: You may remove your dressing on the first day after surgery. ?You may ?leave open to air. Please do not remove the steri strips underneath. they will fall off on their own in one week. IT IS NORMAL FOR THE WOUND TO OOZE OR BE BLOODY FOR A FEW DAYS AFTER SURGERY. ?IF THIS HAPPENS JUST PLACE NEW DRESSING OVER IT TO AVOID STAINING CLOTHES. You may shower on post op day # 1 We ask that you do not let the water soak the wound. If it does get wet, just towel dry lightly. Please do not scrub your incision or place any type of chemical/ointment on the wound. No tub baths, pools or jacuzzis for one month. If you have any leaking or redness from your wound, or fevers, please call office Print Language: Swedish
[2025-04-17] VITALS (14 sets, daily range): BP systolic 96–153; BP diastolic 42–76; PULSE 58–93; RESP 12–19; TEMP 36.1–36.9; O2SAT 89–98; BMI 28.4; BMI 34.0
--- NOTE | ~2025-04-17 | FL_ITS ---
EXAMINATION: FL GUIDANCE ONLY HISTORY: C3-4 C4-5 ACDF COMPARISON: Correlation is made with plain films of the cervical spine dated 02/07/2025. TECHNIQUE: Fluoroscopy time: 9 seconds. Cumulative Dose: 3.10 mGy. DAP: 8 5.82 uGym2 Images: 3. FINDINGS: Fluoroscopic spot films of the cervical spine demonstrate anterior cervical disc fusion at the C3-4 and C4-5 levels. FL/FL guidance in OR IMPRESSION: Fluoroscopy during procedure. Please see procedure report for additional information. Electronically signed by: Esteban Lauren MD 04/17/2025 10:01 AM [facility]
[2025-04-17] MEDS: Lactated Ringers 1,000 ML 100 ML IVCONT (06:08)
--- NOTE | 2025-04-17 07:04 | MHC.SHP ---
Pre-Procedural Eval Section A - 24 Hr Update-Section A only Date of Service: 04/17/25 The patient is an INPATIENT: No Changes since office visit: No Cold of Flu in the past 2 weeks, No New Medical Problems, No Changes in Medication and No Patient answered all questions The patient has been examined within 24 hours of the surgical procedure. The History & Physical has been completed within 30 days and I have reviewed it.: No Section B - Complete if H&P > 30 days Chief Complaint: Cervical disc disorder with radiculopathy, Allergies: Allergies Allergy/AdvReac Type Severity Reaction Status Date / Time erythromycin base Allergy Severe Flu Like Verified 02/07/25 14:22 Symptoms hydrochlorothiazide Allergy Severe Flu Like Verified 02/07/25 14:22 Symptoms lisinopril Allergy Severe Flu Like Verified 02/07/25 14:22 Symptoms Review of Systems Sugical H&P ROS: Negative: Constitution, Cardiovascular, Respiratory, Neurological, Psychiatric, Hem-Onc, Allergic/Immunologic, Gastrointestinal, Genitourinary, Musculoskeletal, Integumentary, Endocrine and Eyes/Ears/Nose/Throat Exam Surgical H&P Exam: Normal: HEENT, Normal: Heart, Normal: Lungs, Normal: Extremities, Normal: Abdomen, Normal: Skin and Normal: Neurological (awake, alert,oriented x 3 ) Plan Diagnosis/Plan: Unchanged C3-4, C4-5 Anterior cervical diskectomy and fusion Time Spent With Patient Time: Total time managing care of this patient today __5__ minutes.
--- NOTE | 2025-04-17 07:20 | HO.ANESPROP2 ---
Documented by User: Tessy Grove NP 04/07/25 13:12 HPI - Anesthesia Eval Consult details Narrative: 59yo F for C3-4,C4-5 Ant Cerv Discectomy w/ fusion, 04/17/25 No recent illness No CP/SOB with walking outside ~ 4 days weekly CRISTIAN: CPAP QHS HTN: BP up at PAT, but reports better at home (130's/70's). Will bring log DOS. PMFSH Active Problems Active Problems: All Active Problems Herniation of cervical intervertebral disc with radiculopathy (Acute) Cervical radiculopathy (Acute) Past Medical History Medical History (Updated 04/07/25 @ 11:57 by Aga Messer RN) Arthritis Sleep apnea HTN (hypertension) Family History Family history of problems with anesthesia: No Surgical History Surgical History (Updated 04/07/25 @ 11:57 by Aga Messer RN) H/O colonoscopy Hx of appendectomy Hx of shoulder surgery History of History of Problems with Anesthesia: No Social History Social History Are you a primary critical care unit manager to a significant other at home: No Do you presently have visiting nurse or other home services: No Patient Tobacco Use Status: Never used Tobacco Use of substances other than those prescribed or required for medical reasons: No Have you been hit, kicked, punched, or otherwise hurt by someone within the past year? If so, by whom?: No Spiritual Healthcare Practices: no Christianity Healthcare Practices: no Cultural Healthcare Practices: no Are you DNR?: No Advance Directives Information Provided: Yes (as above noted) Advance Directives on File: No Meds Allergies Allergy/AdvReac Type Severity Reaction Status Date / Time erythromycin base Allergy Severe Flu Like Verified 02/07/25 14:22 Symptoms hydrochlorothiazide Allergy Severe Flu Like Verified 02/07/25 14:22 Symptoms lisinopril Allergy Severe Flu Like Verified 02/07/25 14:22 Symptoms Home Medications ?Medication ?Instructions ?Recorded ?Confirmed ?Last Taken ?Type atorvastatin 10 mg tablet 10 mg PO QAM 04/04/25 04/07/25 04/16/25 History bupropion HCl 150 mg 24 hr tablet, 150 mg PO QAM 04/04/25 04/07/25 04/16/25 History extended release metoprolol succinate 200 mg 200 mg PO QAM 04/04/25 04/07/25 04/17/25 History tablet,extended release 24 hr sertraline 100 mg tablet 150 mg PO QAM 04/04/25 04/07/25 04/16/25 History cholecalciferol (vitamin D3) 10 10 mcg PO DAILY 04/07/25 04/07/25 04/16/25 History mcg (400 unit) chewable tablet (Vitamin D3) ibuprofen 200 mg tablet 400 mg PO Q6H PRN Pain 04/07/25 04/07/25 04/02/25 History Exam Height,Weight and Vital Signs: Height 5 ft Weight 66.8 kg Last Vital Signs Resp 20 04/07/25 12:02 BP 177/70 H 04/07/25 12:02 Pulse Ox 99 04/07/25 12:02 O2 Del Method Room Air 04/07/25 12:02 Airway Mallampati Class: II TM Dist: >3cm Neck ROM: Limited Loose/Missing/Broken Teeth: No (1 x molar implant) Heart: RRR Lungs: CTAB Assessment and Plan Assessment Anesthesia Assessment: Anesthesia Plan Discussed and PAT Visit Final Anesthetic Review Family History of Problems with Anesthesia: No History of Problems with Anesthesia: No Documented by User: Kristyn Emmanuel DO 04/17/25 07:22 [facility] Past Medical History Medical History (Updated 04/07/25 @ 11:57 by Aga Messer RN) Arthritis Sleep apnea HTN (hypertension) Family History Family history of problems with anesthesia: No Surgical History Surgical History (Updated 04/07/25 @ 11:57 by Aga Messer RN) H/O colonoscopy Hx of appendectomy Hx of shoulder surgery History of History of Problems with Anesthesia: No Social History Social History Are you a primary critical care unit manager to a significant other at home: No Do you presently have visiting nurse or other home services: No Patient Tobacco Use Status: Never used Tobacco Use of substances other than those prescribed or required for medical reasons: No Have you been hit, kicked, punched, or otherwise hurt by someone within the past year? If so, by whom?: No Spiritual Healthcare Practices: no Christianity Healthcare Practices: no Cultural Healthcare Practices: no Are you DNR?: No Advance Directives Information Provided: Yes (as above noted) Advance Directives on File: No Meds Allergies Allergy/AdvReac Type Severity Reaction Status Date / Time erythromycin base Allergy Severe Flu Like Verified 02/07/25 14:22 Symptoms hydrochlorothiazide Allergy Severe Flu Like Verified 02/07/25 14:22 Symptoms lisinopril Allergy Severe Flu Like Verified 02/07/25 14:22 Symptoms Home Medications ?Medication ?Instructions ?Recorded ?Confirmed ?Last Taken ?Type atorvastatin 10 mg tablet 10 mg PO QAM 04/04/25 04/07/25 04/16/25 History bupropion HCl 150 mg 24 hr tablet, 150 mg PO QAM 04/04/25 04/07/25 04/16/25 History extended release metoprolol succinate 200 mg 200 mg PO QAM 04/04/25 04/07/25 04/17/25 History tablet,extended release 24 hr sertraline 100 mg tablet 150 mg PO QAM 04/04/25 04/07/25 04/16/25 History cholecalciferol (vitamin D3) 10 10 mcg PO DAILY 04/07/25 04/07/25 04/16/25 History mcg (400 unit) chewable tablet (Vitamin D3) ibuprofen 200 mg tablet 400 mg PO Q6H PRN Pain 04/07/25 04/07/25 04/02/25 History Exam Exam Date and Time: Height 5 ft Weight 65.9 kg Vital Signs Respiratory Rate 20 04/07/25 12:02 Blood Pressure 177/70 H 04/07/25 12:02 Pulse Oximetry 99 04/07/25 12:02 Oxygen Delivery Method Room Air 04/07/25 12:02 Temperature 98.5 F 04/17/25 06:12 Pulse Rate 58 04/17/25 06:12 Respiratory Rate 18 04/17/25 06:12 Blood Pressure 144/76 H 04/17/25 06:12 Pulse Oximetry 96 04/17/25 06:12 Oxygen Delivery Method Room Air 04/17/25 06:12 Airway Mallampati Class: II TM Dist: >3cm Neck ROM: Limited Loose/Missing/Broken Teeth: No (patient denies any loose or broken teeth) Heart: S1S2 Assessment and Plan Assessment Anesthesia Assessment: Anesthesia Plan Discussed and Chart Reviewed Final Anesthetic Review Family History of Problems with Anesthesia: No History of Problems with Anesthesia: No NPO: Yes ASA Class: II Final Preanesthetic Review: No Changes in Pt Med Stat, Meds/Allgs Chart Reviewed, Consent Obtained/Reviewed and Anes Risks/Benef Reviewed Patient Risk: Low Procedure Risk: Intermediate Anesthetic Plan Anesthetic Plan: GA and Agree w/ Assess. and Plan Disposition: Standard PACU
--- NOTE | 2025-04-17 09:06 | W.PM.OPN ---
Operative Note Operative Note Date of Service: 04/17/25 Narrative: Preoperative Diagnosis: Cervical radiculopathy, left Procedure: C3-C4, C4-C5 anterior discectomy, arthrodesis and implantation cage ; C3-C5 anterior instrumentation ; local autograft; microscope Informed Consent was obtained for this operation. I have explained the nature, purpose and benefits of the operation. I have discussed the risks and benefit of the operation including possible complications or adverse events with patient/family. Alternative(s) were discussed with the patient with their relative benefits and risks as well as the consequences of not accepting the operation were included in obtaining consent. Surgeon: CHAPIS VELASCO MD, PHD Procedure Assisted By: sae Crawford Description of Procedure: This patient is suffering from left-sided cervical radiculopathy. MRI shows cervical degenerative disc disease C3-C4 C4-C5 with with severe left C4 and C5 foraminal stenosis. The patient was offered an anterior diskectomy and fusion of these levels. The procedure complications were explained. The patient was consented. The patient was brought to the operating room and endotracheally intubated. The patient was put in supine position with slight extension of the neck. Prep and drape was done followed by timeout. A mid cervical incision was made followed by opening of the platysma. The prevertebral fascia was reached following the natural planes while the physician research assistant provided manual retraction. The prevertebral fascia was opened to expose the disc space. A spinal needle was placed in the disk space to confirm the correct levels with xray. The longus colli muscles were released bilaterally and a self retaining retractor was inserted. An initial diskectomy was done at C3-4 and C4-5. Two Timberon pins were placed in the C3 and C4 vertebral bodies and distraction was give over the interspace. The discectomy was completed toward the posterior annulus of the disc. The microscope was brought in. The remainder of the discectomy was completed. The posterior ligament was opened and resected to expose the underlying dura. Osteophytes were resected from the body of C3 and C4 and saved for autograft. Bilateral foraminotomies were done. The endplates were prepared after which a 6 mm cage filled with autograft was inserted into the disc space. A separate attached plate was locked down with 2 x 12 mm screws as anterior instrumentation. The Timberon pin from C3 was put in vertebral body of C5. Distraction was giving out of the interspace. The diskectomy was completed. Posterior longitudinal ligament was opened and resected to expose the underlying dura. Osteophytes were resected from the body of C4 and C5 safe for autograft. The bilateral C5 foraminotomy was done. Endplates were prepared after which a 6 mm cage was inserted filled with autograft. A separate attached plate was locked down with 2 x 12 mm screws as anterior instrumentation. Final x-rays in AP and lateral projection showed a satisfactory position of the implants and anterior instrumentation. The physician research assistant took over. The Timberon pin was removed. Hemostasis was done. He closed the incision in 2 layers with a 3-0 Vicryl. Steri-Strips used to approximate incision. An OpSite with Tegaderm was used to cover the incision. All sponge and needle counts were correct. Patient was extubated and transported in stable is to recovery room. Anesthesia: General Estimated Blood Loss (ml): 30 mL Duration of Surgery: 1 hour Postoperative Plan: Discharge home Complications: None
[2025-04-17] MEDS: oxyCODONE HCl Immed Release 5 MG TABLET PO (11:26)
--- NOTE | 2025-04-17 13:53 | PHA.MEDREC ---
Pharmacy Consult ? Medication Reconciliation Pharmacy has completed the medication reconciliation.Med rec done by nursing, reviewed by pharmacist
[2025-04-17] MEDS: buPROPion HCl XL 150 MG TAB.ER.24H PO (14:17)
[2025-04-17] MEDS: oxyCODONE HCl Immed Release 5 MG TABLET 10 MG PO (15:57)
[2025-04-18 03:55] VITALS: BP 127/60; PULSE 70; RESP 18; TEMP 36.6; O2SAT 100
[2025-04-18] MEDS: buPROPion HCl XL 150 MG TAB.ER.24H PO (07:06)
[2025-04-18] MEDS: oxyCODONE HCl Immed Release 5 MG TABLET 10 MG PO (07:06)
[2025-04-18] MEDS: Cholecalciferol (Vitamin D3) 10 MCG TABLET PO (07:06)
[2025-04-18 07:20] VITALS: BP 143/65; PULSE 63; RESP 16; TEMP 36.8; O2SAT 95
[2025-04-18] MEDS: Metoprolol Succinate ER 100 MG TAB.ER.24H 200 MG PO (08:13)
--- NOTE | 2025-04-18 09:16 | HO.NEURO.PN ---
Neurosurgery Operative Note Date of Service: 04/18/25 Narrative: Post op day 1 anterior cervical diskectomy and fusion Patient reports some neck discomfort and some mild dysphagia. Her preoperative arm pain has gone. She had been up walking around and anticipating going home. Afebrile, vital signs stable Physical exam: Patient is awake alert oriented x3, no acute distress, strength full, anterior neck incision is clean and dry no signs of hematoma, voice normal Impression. Postop day 1. Anterior cervical diskectomy and fusion, clinically doing well, preoperative arm pain has gone, strength normal, tolerating a diet, voiding and ambulating. Will discharge home. Dr. Nicholson updated on the patient's status.
--- NOTE | 2025-04-18 09:18 | P.DS_ITS ---
DS: Providers Provider Date of Service: 04/17/25 Date of discharge: 04/18/25 Primary care physician: RODRICK Ritter DS: Diagnosis Discharge Diagnosis (1) Cervical radiculopathy: Status: Acute DS: Summary Hospital Course Hospital Course: Patient was admitted for elective anterior cervical diskectomy and fusion. Patient preferred not to go home, requested to stay 1 night in the hospital. Dr. Nicholson obliged, we admitted the patient to the hospital, diet was advanced without a problem. She was moving around voiding without any problems. First postoperative night was unremarkable. Her preoperative pain was gone, we discharge her home on postop day 1. In stable condition. Time Attestation Discharge Coordination Time (in mins): 6 Quality: Safe Use of Opioids Does Pt have an Active Cancer Diagnosis on the Problem List?: No Quality: Stroke Does the patient have a stroke diagnosis?: No Physical Exam Vital Signs: Vital Signs: Last Vital Signs Temp 98.2 F 04/18/25 07:20 Pulse 63 04/18/25 07:20 Resp 16 04/18/25 07:20 BP 143/65 H 04/18/25 07:20 Pulse Ox 95 04/18/25 07:20 O2 Del Method Room Air 04/18/25 07:20 O2 Flow Rate 1 04/17/25 10:00 BMI result Body Mass Index 34.0 Discharge Plan Discharge Patient Disposition: Home, Self-Care Referrals: Anny Cullen FNP [Primary Care Provider, Family Practice] - 1 Week Discharge Medications: New docusate sodium [Colace] 100 mg capsule 100 mg PO BID Qty: 20 0RF oxycodone 5 mg tablet 5 mg PO Q4H PRN (Reason: pain) Qty: 20 0RF Rx Instructions: Partial Fill upon patient request. Continued atorvastatin 10 mg tablet 10 mg PO QAM metoprolol succinate 200 mg tablet extended release 24 hr 200 mg PO QAM sertraline 100 mg tablet 150 mg PO QAM bupropion HCl 150 mg tablet extended release 24 hr 150 mg PO QAM ibuprofen 200 mg Tablet 400 mg PO Q6H PRN (Reason: Pain) cholecalciferol (vitamin D3) [Vitamin D3] 10 mcg (400 unit) Tablet,Chewable 10 mcg PO DAILY Discharge Orders: Discharge Order (Routine); Ordered 04/18/25 Ordered By: Tuan T Hudson Diet: Advance to usual diet Activity on Discharge: As tolerated Activity Restrictions/Additional Instructions: After your spinal surgery we ask you to observe the following restrictions/guidelines: Activity: It is normal to feel some discomfort as you increase your activity, but that will improve with time. We ask you avoid heavy lifting or acitivities that cause pain. As a general rule, 8lbs is a safe limit for lifting right after surgery. Walk as much as you feel comfortable but not to exhaustion. You will feel extra tired the first few days after surgery. Stay well hydrated. It is OK to walk up and down stairs You may return to driving when you are off narcotics (such as vicodin, oxycodone, dilaudid, etc), and you are back to normal functional capacity. If you have any concerns please check with office before driving. Return to work is specific to each patient and each surgery, so please speak with your doctor/PA at first follow up. Please bring paperwork such as FMLA at that time if you need it filled out. Medications: For optimum pain control, it is best to start with a combination of 500 mg of Tylenol every 4 hours with 600 mg of Motrin every 8 hours, and use narcotics as needed in between for breakthrough pain. We will give you a short supply of narcotics after surgery (usually one weeks worth). If you need more please call the office but do not use more than prescribed. You will need to give our office 48 hours notice if you need narcotics refilled and we do not fill narcotics on weekends or evenings. If you are on a narcotic, it is a good idea to take a stool softener such as colace or senna to avoid constipation If you take blood thinner such as aspirin, Plavix, Coumadin, Effient, Eliquis etc for conditions such as Afib, DVT, Pulmonary embolus, coronary disease, stents etc please speak with your surgeon about specific details as to when you can resume these medications. Follow up: Please call the office, , after surgery to arrange a 3 week follow up for wound check. Wound Care: You may remove your dressing on the first day after surgery. ?You may ?leave open to air. Please do not remove the steri strips underneath. they will fall off on their own in one week. IT IS NORMAL FOR THE WOUND TO OOZE OR BE BLOODY FOR A FEW DAYS AFTER SURGERY. ?IF THIS HAPPENS JUST PLACE NEW DRESSING OVER IT TO AVOID STAINING CLOTHES. You may shower on post op day # 1 We ask that you do not let the water soak the wound. If it does get wet, just towel dry lightly. Please do not scrub your incision or place any type of chemical/ointment on the wound. No tub baths, pools or jacuzzis for one month. If you have any leaking or redness from your wound, or fevers, please call office Print Language: Vietnamese
--- NOTE | 2025-04-18 09:38 | MHC.CM.PN ---
pt dcd home self care prior to being seen by cm
--- NOTE | 2025-04-18 10:16 | HO.POSTANES ---
Post Anesthesia Evaluation Post Anesthesia Evaluation Date of Service: 04/18/25 Vital Signs: Vital Signs Temp Pulse Resp BP Pulse Ox O2 Del Method 04/18/25 07:20 98.2 F 63 16 143/65 H 95 Room Air 04/18/25 03:55 97.8 F 70 18 127/60 100 Room Air Anesthesia: General Endotracheal-GETA Mental Status: Awake Pain Control: Satisfactory Nausea/Vomiting: None Hydration: Adequate Anesthesia-Related Issues: No Anes. Related Issues
== END 2025-04-18 10:52 | disposition home or self-care (01) ==
LOC: HO.SSS 05:43 → HO.S3 13:16
PROVIDERS: PCP Nurse Practitioner Family; Visit Provider Neurological Surgery
PROC: (CPT 22551; principal; 2025-04-17 07:30)
DX: M50.11 Cervical disc disorder with radiculopathy, high cervical region (principal); M50.121 Cervical disc disorder at C4-C5 level with radiculopathy; M48.02 Spinal stenosis, cervical region; I10 Essential (primary) hypertension; G47.33 Obstructive sleep apnea (adult) (pediatric); Z99.89 Dependence on other enabling machines and devices; Z79.899 Other long term (current) drug therapy; Z88.1 Allergy status to other antibiotic agents; Z88.8 Allergy status to other drugs, medicaments and biological substances; Z98.890 Other specified postprocedural states
CPT/HCPCS: 22551; 22552; 22853; 20936; 22845; C1713; J0131; J0690; J1100; J2003; J2250; J2405; J2704; J3010

== ENCOUNTER → 2025-04-17 05:43 | Outpatient (BNV) | payer BC, SELFPAY | PROVIDERS: PCP Nurse Practitioner Family; Visit Provider Neurological Surgery | DX: M54.12 Radiculopathy, cervical region (principal); Z48.89 Encounter for other specified surgical aftercare | CPT/HCPCS: 20936; 22551; 22552; 22845; 22853; 99024; 99499 ==

== ENCOUNTER 2025-05-05 09:11 | Outpatient (AMB) | payer BC, SELFPAY ==
--- NOTE | 2025-05-05 09:20 | A.SPINEOV_ITS ---
Intake Visit Reasons: 1st post op Intake Note: Ms. Dwyer is here today for her 1st post op. Corporate Claims Examiner Required: No Allergies erythromycin base Allergy (Severe, Verified 05/05/25 09:21) Flu Like Symptoms hydrochlorothiazide Allergy (Severe, Verified 05/05/25 09:21) Flu Like Symptoms lisinopril Allergy (Severe, Verified 05/05/25 09:21) Flu Like Symptoms Assessment & Plan Assessment & Plan (1) S/P cervical spinal fusion: Code(s): Z98.1 - Arthrodesis status Category: Surgical Plan Procedure: C3-C4, C4-C5 ACDF Alexia is a pleasant 59-year-old female who underwent the above-listed procedure with Dr. Nicholson a few weeks ago. She comes in today for her 1st postoperative visit. She reports that since her surgery she has felt overall much better than she did prior to surgery. She feels her severe neck pain and shooting pain down her left upper extremity has essentially resolved. She functionally has been doing very well and only really struggles with occasional flare-ups of low-grade pain with increased activity. She did state that she has a pulling sensation between her shoulders which has persisted since surgery. We discussed how this is likely related to some stretching of the trapezius muscle secondary to the 2 level cervical fusion. She asked several questions regarding the postoperative healing course which I answered to the best of my ability. No new neurological deficits. The patient ambulates well and rises from a seated position without difficulty. Her anterior incision site is closed and well healing with no signs of erythema or drainage. I would like to follow up with the patient again in 6 weeks for her 2nd postoperative visit. We will obtain a set of x-rays at that visit. Cruz Nicholson MD,PhD [facility] Coding Level of Care Code Global (31073) Diagnoses S/P cervical spinal fusion Z98.1
--- OUTSIDE RECORDS SUMMARY | 2025-05-05 10:11 | XMS_ITS | Patient Health Record ---
Author Organization [facility] Address [address] [facility] [address] [place] [address] Care Team Providers Care Dock Builder Name Role Phone THANH VILLATORO Primary Care Provider Tre Rawls MD MSc, [place] Unavailable [phone] Allergies Allergen (clinical drug ingredient) Drug/Non Drug Allergy documented on EMR Reaction Allergy Type Onset Date Status Information temporarily unavailable Arythromicin Unknown Drug Allergy Active Reason For Referral No Information Medications Medication SIG (Take, Route, Frequency, Duration) Notes Start Date End Date Status Nortriptyline HCl 10 MG Capsule 1 capsule Orally po qhs; Duration: 30 day(s) 09/05/2011 Active Atenolol unknown Tablet 0.5 tablet Orall y Once a day; Duration: 30 day(s) Active Apri unknown Tablet 1 tablet Orally Once a day; Duration: 28 day(s) Active Zoloft unknown Tablet 1 tablet Orally On ce a day; Duration: 30 day(s) Active Ibuprofen 600 MG Tablet 1 tablet Orally once a day, prn; Duration: 30 day(s) Active Social History Social History Additional Details Category Social Info Options Details Social History Occupation yes [employer] Alcohol yes Wine with Dinner daily Marital status: yes Children yes Caffeine yes Minimal- 1 cup d aily; 1 soda weekly Persons in the home spouse Diaz and two minor children Problems Problem Type SNOMED Code ICD Code Onset Dates Problem Status W/U Status Risk Notes Problem Sciatica (49338352) Sciatica (724.3) Active confirmed Problem Lumbago (070869929) Lumbago (724.2) Active confirmed Problem Lumbosacral spondylosis without myelopathy (78054571) Lumbosacral spondylosis without myelopathy (721.3) Active confirmed Plan Of Treatment No Information Insurance Providers Payer Name Payer Address Payer Phone Subscriber Number Group Number Insured Name Patient Relationship to Insured Coverage Start Date Coverage End Date [employer] PPO [address] [place], [place] [id number] [phone] [id number] Alexia Dwyer Self - patient is the insured Medical (General) History Medical History History ICD Code Hypertension Anxiety disorder Surgical History Surgery Date(Month/Year) Appendectomy C section
--- OUTSIDE RECORDS SUMMARY | 2025-05-05 10:11 | XMS_ITS | Encounter Summary ---
Author Organization [facility] Address [address] [place] [address] Care Team Providers Care Slack Cooper Name Role Phone Anny Cullen RADIOLOGY RECEPTIONIST Primary Care Provider [phone] Encounter Details Date Type Department Care Team (Late st Contact Info) Description 01/29/2024 Orders Only [facility] [address] [place] [address] Anny Cullen, RADIOLOGY RECEPTIONIST [address] [facility] [address] [place] [address] Hyperlipidemia, unspecified hyperlipidemia type (Primary Dx); Hyperglycemia [...] Care Team (Late st Contact Info) Description 07/07/2025 3:30 PM EST Procedure visit [facility] Audiology Department [address] [place] [address] Danni Szymanski, CEE, CCC-A [address] [place] [address] 08/19/2025 7:40 AM EDT Appointment [facility] [address] [place] [address] documented as of this encounter Results * Due to [place] state law, this organization might not be sharing negative HIV tests. * Hemoglobin A1c (08/01/2024 7:42 AM EST) Hemoglobin A1c 5.5 4.0 - 5.7 % 08/01/2024 8:18 AM EST [facility] Estimated Average Glucose 111 mg/dL 08/01/2024 8:18 AM EST [facility] Blood Structure of peripheral vein / Unknown Venipuncture / Unknown 08/01/2024 7:42 AM EST 08/01/2024 7:51 AM EST Anny Cullen RADIOLOGY RECEPTIONIST LAB BLOOD ORDERABLES Final Resu lt Performing Organization Address City/State/[facility] Co de Phone Number [facility] [address] [facility] [address] [place] [address], * (ABNORMAL) Comprehensive Metabolic Panel (08/01/2024 7:42 AM EST) Pathologist [facility] NA 144 136 - 145 mmol/L 08/01/2024 8:19 AM EST [facility] K 4.6 3.5 - 5.1 mmol/L 08/01/2024 8:19 AM EST [facility] Cl 105 98 - 109 mmol/L 08/01/2024 8:19 AM EST [facility] CO2 27 22 - 32 mmol/L 08/01/2024 8:19 AM EST [facility] Anion Gap 17 >=0 08/01/2024 8:19 AM EST [facility] Glucose 101(H) 60 - 99 mg/dL 08/01/2024 8:19 AM EST [facility] Creatinine 0.87 0.50 - 1.12 mg/dL 08/01/2024 8:19 AM EST [facility] Calcium 9.6 8.4 - 10.4 mg/dL 08/01/2024 8:19 AM EST [facility] Total Protein 7.3 6.6 - 8.7 g/dL 08/01/2024 8:19 AM EST [facility] Albumin 4.4 3.5 - 5.0 g/dL 08/01/2024 8:19 AM EST [facility] Bilirubin, Total 0.4 0.2 - 1.2 mg/dL 08/01/2024 8:19 AM EST [facility] Alkaline Phosphatase 60 40 - 129 U/L 08/01/2024 8:19 AM EST [facility] AST 25 0 - 33 U/L 08/01/2024 8:19 AM EST [facility] ALT 19 <=33 U/L 08/01/2024 8:19 AM EST [facility] BUN 13 8 - 23 mg/dL 08/01/2024 8:19 AM EST [facility] eGFR 76 >=60 mL/min/1. 73m2 08/01/2024 8:19 AM EST [facility] Comment:The estimated glomer ular filtration [...] - 4.2 g/dL 08/01/2024 8:19 AM EST [facility] A/G Ratio 1.5 1.5 - 3.0 08/01/2024 8:19 AM EST [facility] Blood Structure of peripheral vein / Unknown Venipuncture / Unknown 08/01/2024 7:42 AM EST 08/01/2024 7:51 AM EST us Anny M Cullen RADIOLOGY RECEPTIONIST LAB BLOOD ORDERABLES Final Resu lt Performing Organization Address City/[facility]/ZIP Co de Phone Number [facility] [address] [address], [place] [phone] * Lipid panel (08/01/2024 7:42 AM EST) Cholesterol 216 mg/dL 08/01/2024 8:19 AM EST [facility] Comment: DESIRABLE: <200 mg/dL BORDERLINE HIGH: 200-239 mg/dL HIGH: >239 mg/dL Triglycerides 172 mg/dL 08/01/2024 8:19 AM EST [facility] Comment: NORMAL: <150 mg/dL BORDERLINE HIGH: 150-199 mg/dL HIGH: 200-499 mg/dL VERY HIGH >499 mg/dL Cholesterol, HDL 78 mg/dL 08/01/19 8:19 AM EST [facility] Comment: DESIRABLE: >60 mg/dL BORDERLINE: 40-59 mg/dL UNDESIRABLE: <40 mg/dL LDL Cholesterol 104 mg/dL 8:19 AM EST [facility] Comment: OPTIMAL: <100 mg/dL NEAR OPTIMAL: <130 mg/dL BORDERLINE HIGH: 130-159 mg/dL HIGH: 160-189 mg/dL VERY HIGH: >189 mg/dL VLDL 34.4 mg/dL 08/01/2024 8:19 AM EST [facility] Cholesterol/HDL Ratio 2.8 08/01/2024 8:19 AM EST [facility] Blood Structure of peripheral vein / Unknown Venipuncture / Unknown 08/01/2024 7:42 AM EST 08/01/2024 7:51 AM EST us Anny Cullen RADIOLOGY RECEPTIONIST LAB BLOOD ORDERABLES Final Resu lt Performing Organization Address City/[facility]/ZIP Co de Phone Number [facility] [address] [address], [place] [phone] documented in this encounter Visit Diagnoses Diagnosis [...] documented as of this encounter Care Teams Slack Cooper Relationship Specialty Start Date End Date Anny Cullen, RADIOLOGY RECEPTIONIST [address] [place] [address] PCP - General Family Medicine 08/01/24 documented as of this encounter
--- OUTSIDE RECORDS SUMMARY | 2025-05-05 10:11 | XMS_ITS | Encounter Summary ---
Author Organization [employer] [facility] Address [address] [facility] [place] [address] Care Team Providers Care Manager Payer Name Role Phone Unavailable Primary Care Provider Unavailabl e Encounter Details Date Type Department Care Team (Late st Contact Info) Description 01/16/2025 Telephone [facility] [address] [place] [address] Judy Metzger LPN [address] [place] [address] Social History Tobacco Use Types Packs/Day Years [...]
--- OUTSIDE RECORDS SUMMARY | 2025-05-05 10:11 | XMS_ITS | Clinical Summary ---
Author Organization [facility] Address [address] [place] [address] Care Team Providers Care Sheet Writer Name Role Phone Unavailable Primary Care Provider Unavailabl e Social History Tobacco Use Types Packs/Day Years Used Date Smoking Tobacco: Never Assessed Comments Unknown Sex and Gender Information Value Date Recorded Sex Assigned at Not on file Legal Sex Female 11:03 AM EST Gender Identity Not on file Sexual Orientation Not on file Plan of Treatment Not on file Medical Devices Not on file
--- OUTSIDE RECORDS SUMMARY | 2025-05-05 10:11 | XMS_ITS | Encounter Summary ---
Author Organization [facility] Address [address] [place] [address] Care Team Providers Care Engineering Recruiter Name Role Phone Anny Cullen SAMPLE CARRIER Primary Care Provider [phone] Encounter Details Date Type Department Care Team (Late st Contact Info) Description 09/25/2023 Lab Requisition [facility] [address] [place] [address] Anny Cullen, SAMPLE CARRIER [address] [facility] [address] [place] [address] Cough, unspecified Social History Tobacco Use Types [...] Description 07/07/2025 3:30 PM EST Procedure visit [facility] Audiology Department [address] [place] [address] Danni Szymanski AUD, CCC-A [address] [place] [address] 08/19/2025 7:40 AM EDT Appointment [address] [address] documented as of this encounter Procedures * Due to [place] [employer] law, this organization might not be sharing negative HIV tests. Procedure Name Priority Date/Time Associated Diagnosis Comments MVL QS - COVID-19, FLU A/B & RSV RNA PCR, SYMPTOMATIC Routine 09/25/2023 12:40 PM EDT Cough, unspecified documented in this encounter Results * Due to [place] [employer] law, this organization might not be sharing negative HIV tests. * COVID-19, Flu A/B & RSV RNA PCR, Symptomatic (09/25/2023 12:40 PM EDT) PCR, SARS CoV-2 RNA Not Detected Not Detected [facility] 09/25/2023 1:24 PM EDT [facility] Flu A RNA PCR Not Detected Not Detected [employer] 09/25/2023 1:24 PM EDT [facility] Flu B RNA PCR Not Detected Not Detected [employer] 09/25/2023 1:24 PM EDT [facility] RSV RNA PCR Not Detected Not Detected [employer] 09/25/2023 1:24 PM EDT [facility] Comment: Limitations: This RSV test [...] PM EDT 09/25/2023 12:40 PM EDT Narrative [facility] - 09/25/2023 1:24 PM EDT Methodology: The Combined Effort GeneXpert CoV-2/Flu/RSV plus assay is For Use Under an Emergency Use Authorization (EUA) Only with [employer]. The CoV-2/Flu/RSV plus assay is a [...] other patient management decisions. us Anny Cullen SAMPLE CARRIER LAB BODY FLUIDS AND STOOLS MIKE SKAGGS Final Result [facility] [address] [facility] [address] [place] [address], documented in this encounter Visit Diagnoses Diagnosis [...] documented as of this encounter Care Teams Engineering Recruiter Relationship Specialty Start Date End Date Anny Cullen, SAMPLE CARRIER [address] [place] [address] [address] [place] [address] PCP - General Family Medicine 08/01/24 documented as of this encounter
--- OUTSIDE RECORDS SUMMARY | 2025-05-05 10:11 | XMS_ITS | Clinical Summary ---
Author Organization [facility] Address [address] [place] [address] Care Team Providers Care Sports Coordinator Name Role Phone Anny Cullen CAR ICER Primary Care Provider [phone] Allergies Active Allergy Reactions Criticality Noted Date [...] by mouth nightly. 30 tablet 1 01/23/2025 Active Active Problems Problem Noted Date Diagnosed Date Lower back pain 04/12/2012 Hypertension 04/12/2012 Encounters Date Type Department Care Team Description 03/08/2025 10:00 AM EDT Lab [facility] Draw Site Department [address] [place] [address] Routine general medical examination at a health care facility (Primary Dx) 02/14/2025 Refill [facility] [address] [place] [address] Ashanti Peterson MD from Last 3 Months Social History Tobacco [...] Description 07/07/2025 3:30 PM EST Procedure visit [facility] [address] [place] [address] Danni Szymanski, AUD, CCC-A [address] [facility] [place] [address] 08/19/2025 7:40 AM EDT Appointment [facility] [address] [facility] [place] [address] Health Maintenance Due Date Last Done Comments [...] 2025 05/26/2022, 05/31/2021, 09/09/2020, Additional history exists Basic Metabolic Panel 03/08/2026 03/08/2025 , 08/01/2024, 01/17/2024, Additional history exists Mammogram 08/13/2026 08/13/2024, 03/0 06/2023, 08/08/2023, Additional history exists Diabetes Screening 03/08/2028 03/08/2025, 0 03/08/2025, 08/01/2024, Additional history exists Colon Cancer Screening 10/07/2034 Colonoscopy 10/07/2034 10/07/2024, 09/11, 12/16/2014 RSV Vaccine (60+ years old and patients) (1 - 1-dose 75+ series) 11/06/2038 Zoster Vaccines Completed 03/21/2022, 01/13/2022 Influenza Vaccine Completed 02/25/2025, , 03/16/2021, Additional history exists Hepatitis B Vaccines Aged Out No long er eligible based on patient's age to complete this topic Procedures * Due to [place] state law, this organization might not be sharing negative HIV tests. Procedure Name Priority Date/Time Associated Diagnosis Comments CBC AUTO DIFFERENTIAL Routine 03/08/2025 8:55 AM EDT Routine general medical examination at a health care facility HEMOGLOBIN A1C Routine 03/08/2025 8:55 AM EDT Routine general medical examination at a health care facility COMPREHENSIVE METABOLIC PANEL Routine 03/08/2025 8:55 AM EDT Routine general medical examination at a health care facility LIPID PANEL Routine 03/08/2025 8:55 AM EDT Routine general medical examination at a [facility] care facility TSH Routine 03/08/2025 8:55 AM EDT Routine general medical examination at a [facility] care facility COLONOSCOPY 10/07/2024 JOSE RAMON BILATERAL SCREENING DIGITAL MAMMOGRAM WITH DOUG Routine 08/13/2024 7:31 AM EST Screening mammogram for breast cancer from Last 3 Months or Most Recently Relevant to Health Maintenance Results * Due to [place] state law, this organization might not be sharing negative HIV tests. * (ABNORMAL) CBC Auto Differential (03/08/2025 8:55 AM EDT) WBC 5.4 4.8 - 10.8 10*3/uL 03/08/2025 9:31 AM EDT [facility] RBC 4.16(L) 4.20 - 5.40 10*6/uL 03/08/2025 9:31 AM EDT [facility] Hemoglobin 13.1 11.7 - 15.5 g/dL 03/08/2025 9:31 AM EDT [facility] Hematocrit 38.1 35.7 - 45.8 % 03/08/2025 9:31 AM EDT [facility] MCV 91.6 81.0 - 99.0 fL 03/08/2025 9:31 AM EDT [facility] MCH 31.5 26.0 - 34.0 pg 03/08/2025 9:31 AM EDT [facility] MCHC 34.4 31.0 - 36.0 g/dL 03/08/2025 9:31 AM EDT [facility] RDW 11.8(L) 12.0 - 15.0 % 03/08/2025 9:31 AM EDT [facility] RDW Standard Deviation 39.7 36.4 - 46.3 fL 03/08/2025 9:31 AM EDT [facility] Platelets 234 140 - 440 10*3/uL 03/08/2025 9:31 AM EDT [facility] MPV 9.4 9.4 - 12.3 fL 03/08/2025 9:31 AM EDT [facility] Neutrophil % 56.9 50.0 - 75.0 % 03/08/2025 9:31 AM EDT [facility] Immature Grans % 0.4 0.0 - 0.9 % 03/08/2025 9:31 AM EDT [facility] Lymphocyte % 30.3 20.0 - 44.0 % 03/08/2025 9:31 AM EDT [facility] Monocyte % 8.5 0.0 - 14.0 % 03/08/2025 9:31 AM EDT [facility] Eosinophil % 2.6 0.0 - 5.0 % 03/08/2025 9:31 AM EDT [facility] Basophil % 1.3 0.0 - 2.0 % 03/08/2025 9:31 AM EDT [facility] Neutrophil # 3.09 1.80 - 7.70 10*3/uL 03/08/2025 9:31 AM EDT [facility] Immature Grans # <0.03 0.00 - 0.03 10*3/uL 03/08/2025 9:31 AM EDT [facility] Lymphocyte # 1.60 1.00 - 4.75 10*3/uL 03/08/2025 9:31 AM EDT [facility] Monocyte # 0.50 0.00 - 0.60 10*3/uL 03/08/2025 9:31 AM EDT [facility] Eosinophil # 0.10 0.00 - 0.80 10*3/uL 03/08/2025 9:31 AM EDT [facility] Basophil # 0.10 0.00 - 0.20 10*3/uL 03/08/2025 9:31 AM EDT [facility] nRBC % 0.0 0 - 0 /100 WBCs 03/08/2025 9:31 AM EDT [facility] nRBC # <0.01 0.00 - 0.13 10*3/uL 03/08/2025 9:31 AM EDT [facility] Blood Structure of peripheral vein / Unknown Venipuncture / Unknown 03/08/2025 8:55 AM EDT 03/08/2025 9:26 AM EDT us Anny Cullen NP LAB BLOOD ORDERABLES Final Resu lt Performing Organization Address City/[facility]/ZIP Co de Phone Number [address] [address], * TSH (03/08/2025 8:55 AM EDT) TSH 1.550 0.270 - 4.200 uIU/mL 03/08/2025 10:08 AM EDT [facility] Comment: Females: 1st trimester 0.150-4.000 IU/mL 2nd trimester 0.310-4.170 IU/mL 3rd trimester 0.380-4.150 IU/mL Blood Structure of peripheral vein / Unknown Venipuncture / Unknown 03/08/2025 8:55 AM EDT 03/08/2025 9:25 AM EDT us Anny Cullen CAR ICER LAB BLOOD ORDERABLES Final Resu lt Performing Organization Address City/[facility]/ZIP Co de Phone Number [address] [address], [place] [phone] * Hemoglobin A1c (03/08/2025 8:55 AM EDT) Hemoglobin A1c 5.4 4.0 - 5.7 % 03/08/2025 10:02 AM EDT [facility] Estimated Average Glucose 108 mg/dL 03/08/2025 10:02 AM EDT [facility] Blood Structure of peripheral vein / Unknown Venipuncture / Unknown 03/08/2025 8:55 AM EDT 03/08/2025 9:26 AM EDT us Anny Cullen NP LAB BLOOD ORDERABLES Final Resu lt [facility] [address] [address], [place] [phone] * Lipid panel (03/08/2025 8:55 AM EDT) Cholesterol 229 mg/dL 03/08/2025 10:08 AM EDT [facility] Comment: DESIRABLE: <200 mg/dL BORDERLINE HIGH: 200-239 mg/dL HIGH: >239 mg/dL Triglycerides 167 mg/dL 03/08/2025 10:08 AM EDT [facility] Comment: NORMAL: <150 mg/dL BORDERLINE HIGH: 150-199 mg/dL HIGH: 200-499 mg/dL VERY HIGH >499 mg/dL Cholesterol, HDL 85 mg/dL 03/08/20 10:08 AM EDT [facility] Comment: DESIRABLE: >60 mg/dL BORDERLINE: 40-59 mg/dL UNDESIRABLE: <40 mg/dL LDL Cholesterol 111 mg/dL 10:08 AM EDT [facility] Comment: OPTIMAL: <100 mg/dL NEAR OPTIMAL: <130 mg/dL BORDERLINE HIGH: 130-159 mg/dL HIGH: 160-189 mg/dL VERY HIGH: >189 mg/dL LDL-C is calculated using the Friedewald calculation. VLDL 33.4 mg/dL 03/08/2025 10:08 AM EDT [facility] Cholesterol/HDL Ratio 2.7 03/08/2025 10:08 AM EDT [facility] Blood Structure of peripheral vein / Unknown Venipuncture / Unknown 03/08/2025 8:55 AM EDT 03/08/2025 9:25 AM EDT us Anny Cullen CAR ICER LAB BLOOD ORDERABLES Final Resu lt [facility] [address] [facility] [address] [place] [address], [place] [phone] * Comprehensive Metabolic Panel (03/08/2025 8:55 AM EDT) NA 138 136 - 145 mmol/L 03/08/2025 10:08 AM EDT [facility] K 4.5 3.5 - 5.1 mmol/L 03/08/2025 10:08 AM EDT [facility] Cl 104 98 - 109 mmol/L 03/08/2025 10:08 AM EDT [facility] CO2 25 22 - 32 mmol/L 03/08/2025 10:08 AM EDT [facility] Anion Gap 14 >=0 03/08/2025 10:08 AM EDT [facility] Glucose 94 60 - 99 mg/dL 03/08/2025 10:08 AM EDT [facility] Creatinine 0.89 0.50 - 1.12 mg/dL 03/08/2025 10:08 AM EDT [facility] Calcium 9.9 8.4 - 10.4 mg/dL 03/08/2025 10:08 AM EDT [facility] Total Protein 7.1 6.6 - 8.7 g/dL 03/08/2025 10:08 AM EDT [facility] Albumin 4.4 3.5 - 5.0 g/dL 03/08/2025 10:08 AM EDT [facility] Bilirubin, Total 0.5 0.2 - 1.2 mg/dL 03/08/2025 10:08 AM EDT [facility] Alkaline Phosphatase 55 40 - 129 U/L 03/08/2025 10:08 AM EDT [facility] AST 28 0 - 33 U/L 03/08/2025 10:08 AM EDT [facility] ALT 22 <=33 U/L 03/08/2025 10:08 AM EDT [facility] BUN 17 8 - 23 mg/dL 03/08/2025 10:08 AM EDT [facility] eGFR 74 >=60 mL/min/1. 73m2 03/08/2025 10:08 AM EDT [facility] Comment:The estimated glomer ular filtration [...] in Diagnosing Kidney Disease . Globulin, Total 2.7 2.1 - 4.2 g/dL 03/08/2025 10:08 AM EDT [facility] A/G Ratio 1.6 1.5 - 3.0 03/08/2025 10:08 AM EDT [facility] Blood Structure of peripheral vein / Unknown Venipuncture / Unknown 03/08/2025 8:55 AM EDT 03/08/2025 9:25 AM EDT us Anny Cullen CAR ICER LAB BLOOD ORDERABLES Final Resu lt [facility] [address] [facility] [address] [place] [address], * COLONOSCOPY (10/07/2024) Narrative Procedure Note Spencer Schreiber MD - 10/07/2024 7:03 AM EDT [facility] Patient Name: Alexia Dwyer Procedure Date: 10/07/2024 [...] PM EDT Alexia Dwyer Exam Date: 08/13/[address] [address] EXAMINATION JOSE RAMON Bilateral Screening Digital Mammogram With Doug. INDICATION Alexia Dwyer is a 58 y.o. female and is seen for: JOSE RAMON Bilateral Screening Digital Mammogram With Doug. CC and MLO views were obtained. FDA approved [employer] AI (artificial intelligence) software and R2 CAD [...] interpretation. Juan Snider MD Resulting Agency Comment [id number] Anny Cullen NP IMG BI PROCEDURES Final Result from Last 3 Months or Most Recently Relevant to Health Maintenance Insurance [facility] FEDERAL Advance Directives * Full Code (Latest Code Status on File) Date Activated Date Inactivated Comments 10/07/2024 8:10 AM 10/07/2024 12:03 PM Care Teams Sports Coordinator Relationship Specialty Start Date End Date Anny Cullen NP [address] [place] [id number] PCP - General Family Medicine 08/01/24
--- OUTSIDE RECORDS SUMMARY | 2025-05-05 10:11 | XMS_ITS | Patient Health Record ---
Author Organization [facility] Address [address] [place] [address] Care Team Providers Care Hunting And Fishing Guide Name Role Phone Anthony Chacon DO Primary Care Provider Santo Brar MD, Brenton Unavailable [phone] Allergies Allergen (clinical drug ingredient) Drug/Non Drug [...] End Date BCBS / Federal [address] [place] [address] [id number] Judi Dwyer Self - patient is the insured Medical (General) History Medical History History ICD Code hypertension menopausal symptoms Surgical History Surgery Date(Month/Year) appendectomy C section
== END 2025-05-05 09:40 | disposition home or self-care (01) ==
LOC: HO.HNS 09:11
PROVIDERS: PCP Nurse Practitioner Family; Visit Provider Physician Assistant
DX: Z98.1 Arthrodesis status (principal)
CPT/HCPCS: 99024